=== PATIENT | male | born 1940 | race Caucasian/White ===

== ENCOUNTER → 2018-01-30 15:52 | Outpatient (CLI) | payer MEDICARE, OTHER, SELFPAY ==
--- NOTE | 2018-01-30 | DI.MRI.S_ITS ---
PROCEDURE: MR LUMBAR SPINE WO CON INDICATIONS: LUMBAR SPINE TECHNIQUE: Noncontrast sagittal T1 spin echo and T2 fast echo, sagittal STIR, axial T1 and T2 fast spin echo through the lumbar spine. In this patient, coronal T2-weighted images were also performed. COMPARISON: None. FINDINGS: Image quality: Excellent. Alignment and Curvature: Mild levoconvex scoliotic curvature is noted. Minimal retrolisthesis is seen at the L2-L3, L4-L4 and L4-L5 levels. Bone Marrow: Marrow is of normal overall signal. No acute vertebral body compression fractures. Spinal Cord: Conus medullaris terminates at the T12-L1 level. Visualized cord demonstrates normal signal and size. Paraspinous Soft Tissues: No paravertebral masses. T12-L1: Moderate to severe loss of disc height and disc signal are seen, with endplate osteophyte formation. Moderate to prominent disc bulge is seen at this level. Moderate facet joint hypertrophy is seen. There is at least moderate bilateral neural foraminal narrowing seen, left worse than right. Moderate to severe central canal narrowing is seen. L1-L2: The disc height is well-preserved. Loss of disc signal is seen at this level. Moderate generalized disc bulge is seen. Postoperative changes are seen, with a spinous process fixation device. Moderate bilateral neural foraminal narrowing is seen, left greater than right. Mild to moderate central canal narrowing is seen. L2-L3: The disc height is well-preserved. Loss of disc signal is seen at this level. Moderate to prominent disc bulge is seen, which is eccentric to the right. There is moderate left-sided and moderate to severe right-sided neural foraminal narrowing. Moderate to severe central canal narrowing is seen. L3-L4: Mild loss of disc height is seen. Loss of disc signal is seen. Moderate to prominent disc bulge is seen. Portions of the posterior elements have been removed at this level. Moderate facet joint hypertrophy is seen. Moderate to severe bilateral neural foraminal narrowing is seen, left worse than right. There is a degree of impingement seen upon the exiting nerve roots. At Mild to moderate central canal narrowing is seen. L4-L5: Moderate to severe loss of disc height and disc signal are seen. Endplate irregularity is seen with endplate osteophyte formation. Posteriorly projecting endplate osteophytes are seen, as on series 3 image 9 and on series 5 image 25. Moderate to prominent disc bulge is seen, which is eccentric to the left side. Moderate to severe bilateral neural foraminal narrowing is seen at this level. There is a degree of impingement seen upon the exiting nerve roots. There is been removal of portions of posterior elements. Moderate central canal narrowing is seen. L5-S1: There is an annular tear seen posteriorly, as on series 2 image 8. Mild to moderate disc bulge is seen. Moderate facet joint hypertrophy is seen. Moderate to severe bilateral neural foraminal narrowing is seen. There is an apparent prior left hemilaminectomy. Moderate central canal narrowing is seen. IMPRESSION: Multiple levels of degenerative change are seen, which are most prominent at the L3-L4 and L4-L5 levels. Postoperative changes can be seen. Mild levoconvex scoliotic curvature. Dictated by: Clive Vallejo M.D. on 01/30/2018 at 16:22 Approved by: Clive Vallejo M.D. on 01/30/2018 at 16:30
== END ==
PROVIDERS: Visit Provider Physical Medicine & Rehabilitation Pain Medicine
DX: M54.5 Low back pain (principal); M51.36 Other intervertebral disc degeneration, lumbar region; M51.37 Other intervertebral disc degeneration, lumbosacral region; M48.061 Spinal stenosis, lumbar region without neurogenic claudication; M48.07 Spinal stenosis, lumbosacral region; M41.9 Scoliosis, unspecified
CPT/HCPCS: 72148

== ENCOUNTER → 2018-10-14 12:23 | Outpatient (CLI) | payer MEDICARE, BC, SELFPAY ==
--- NOTE | 2018-10-14 12:30 | DI.MRI.S_ITS ---
PROCEDURE: MR LUMBAR SPINE WO CON INDICATIONS: Radiculopathy, lumbosacral region TECHNIQUE: Noncontrast sagittal T1 spin echo and T2 fast echo, sagittal STIR, axial T1 and T2 fast spin echo through the lumbar spine. In cases with scoliosis, additional coronal T2 fast spin echo may be performed. COMPARISON: [facility] [place], CR, XR LUMBAR SPINE WITH OLBIQUES PLUS FLEXION EXTENSION, 01/16/2018, 14:15. [facility], , MR LUMBAR SPINE WO CON, 01/30/2018, 16:22. FINDINGS: Image quality: Excellent. Alignment and Curvature: There is mild no scoliosis. There is otherwise normal bony alignment. Bone Marrow: Mild levocurvature. Degenerative endplate signal changes. There is posterior fusion at L1-L2. No acute vertebral body compression fractures. Spinal Cord: Conus medullaris terminates at the T12 level. Visualized cord demonstrates normal signal and size. Paraspinous Soft Tissues: No paravertebral masses. T11-T12: Severe loss of disc height and disc desiccation. There is diffuse posterior disc bulge and posterior lateral disc protrusion. Moderate bilateral facet arthropathy. The central canal is severely narrowed. Sxjkgimw-qm-ogttxy bilateral foraminal stenosis and bilateral nerve root impingement. There is mildly increasing central canal and no significant change in foramina stenosis since the last exam. T12-L1: Severe loss of disc height and disc desiccation. There is diffuse posterior disc bulge and disc osteophyte complex. Pbemepos-em-niptlv bilateral facet arthropathy. The central canal is severely narrowed. Moderate bilateral foraminal stenosis. No definitive nerve root impingement. There is mildly increasing central canal and no significant change in foramina stenosis since the last exam. L1-L2: Mild loss of disc height. Moderate disc desiccation. There is diffuse posterior disc bulge and disc osteophyte complex. Zdrxbgqy-fe-dwekff bilateral facet arthropathy. The central canal is moderately narrowed. Yyfh-au-vbrsdwxc bilateral foraminal stenosis. No definitive nerve root impingement. No significant change from the last exam. L2-L3: Mild loss of disc height. Moderate disc desiccation. There is diffuse posterior disc bulge and disc osteophyte complex. Vabsrrxr-ej-yaczja bilateral facet arthropathy and hypertrophy of ligament flavum. The central canal is moderately narrowed. Moderate bilateral foraminal stenosis. No definitive nerve root impingement. No significant change from the last exam. L3-L4: Mild loss of disc height. Moderate disc desiccation. There is diffuse posterior disc bulge and posterior lateral disc protrusion. Severe bilateral facet arthropathy. The central canal is mildly narrowed. Severe bilateral foraminal stenosis and nerve root impingement. No significant change from the last exam. L4-L5: Severe loss of disc height. Moderate disc desiccation. There is diffuse posterior disc bulge and an enlarged left paramedian disc osteophyte complex. Moderate bilateral facet arthropathy. The central canal is mildly narrowed. Severe bilateral foraminal stenosis and nerve root impingement. No significant change from the last exam. L5-S1: Preserved disc height. Moderate disc desiccation. There is diffuse posterior disc bulge and an enlarged left paramedian disc osteophyte complex. Moderate to severe bilateral facet arthropathy. The central canal is mildly narrowed. Severe bilateral foraminal stenosis and nerve root impingement. No significant change from the last exam. IMPRESSION: 1. Multilevel degenerative disc disease and facet arthropathy as described. 2. Severe central canal stenosis at T11-T12 and T12-L1, moderate central canal stenosis at L1-L2 and L2-L3, and mild central canal stenosis at other levels. 3. Multilevel foraminal stenoses as described. Dictated by: Munira Salguero M.D. on 10/16/2018 at 10:06 Transcribed by: DARRELL on 10/16/2018 at 15:30 Approved by: Munira Salguero M.D. on 10/16/2018 at 18:42
== END ==
PROVIDERS: Visit Provider Physical Medicine & Rehabilitation Pain Medicine
DX: M51.17 Intervertebral disc disorders with radiculopathy, lumbosacral region (principal); M51.16 Intervertebral disc disorders with radiculopathy, lumbar region; M51.14 Intervertebral disc disorders with radiculopathy, thoracic region; M48.07 Spinal stenosis, lumbosacral region; M48.061 Spinal stenosis, lumbar region without neurogenic claudication; M48.04 Spinal stenosis, thoracic region; M47.24 Other spondylosis with radiculopathy, thoracic region; M47.25 Other spondylosis with radiculopathy, thoracolumbar region; M47.26 Other spondylosis with radiculopathy, lumbar region; M47.27 Other spondylosis with radiculopathy, lumbosacral region; Z98.1 Arthrodesis status
CPT/HCPCS: 72148

== ENCOUNTER → 2018-10-27 14:36 | Outpatient (CLI) | payer MEDICARE, BC, SELFPAY ==
--- NOTE | 2018-10-27 14:42 | DI.MRI.S_ITS ---
PROCEDURE: MR THORACIC SPINE WO CON INDICATIONS: THORACIC RADICULOPATHY TECHNIQUE: Noncontrast sagittal T1 spine echo and T2 fast spin echo, sagittal STIR, axial T1 and T2 fast spin echo through the thoracic spine. COMPARISON: None. FINDINGS: Image quality: Excellent. Alignment and Curvature: There is normal bony alignment. Bone Marrow: Marrow is of normal overall signal. No acute vertebral body compression fractures. Spinal Cord: Visualized spinal cord is normal in size and signal. Paraspinous Soft Tissues: No paravertebral masses. Miscellaneous: On axial images, foramina appear widely patent at all scanned levels. Multilevel disc desiccation is present. Minimal protrusion is present at T5-6, minimal bulge at T6-7, T7-T8, T10-11, T11, moderate protrusion T12-L1. Small superimposed extrusion cannot be excluded T12-L1. Mild disc bulge and moderate spinal stenosis at L1-L2. Mild spinal stenosis is noted at T10-11, moderate T11-12, severe T12-L1. IMPRESSION: 1. Prominent protrusion with potential small superimposed extrusion at T12-L1 with severe spinal stenosis. 2. Multilevel disc bulges and overall mild to moderate spinal stenosis as above. The above findings were discussed with Dr. Duque's esthetician and manager medical spa Anna Marie, on 10/27/18 at 4:58 PM. The findings would be relayed to Dr. Duque. Dictated by: Ebony Pan M.D. on 10/27/2018 at 16:55 Approved by: Ebony Pan M.D. on 10/27/2018 at 17:02
== END ==
PROVIDERS: PCP Family Medicine; Visit Provider Orthopaedic Surgery Orthopaedic Surgery of the Spine
DX: M51.16 Intervertebral disc disorders with radiculopathy, lumbar region (principal); M51.15 Intervertebral disc disorders with radiculopathy, thoracolumbar region; M48.04 Spinal stenosis, thoracic region; M48.061 Spinal stenosis, lumbar region without neurogenic claudication
CPT/HCPCS: 72146

== ENCOUNTER 2018-11-01 12:24 | Inpatient (IN) | payer MEDICARE, BC, SELFPAY ==
[2018-10-30 15:08] VITALS: BMI 29.7
[2018-10-31] VITALS (16 sets, daily range): BP systolic 93–150; BP diastolic 43–89; PULSE 60–88; RESP 10–19; TEMP 36.2–37; O2SAT 91–100; BMI 28.5
--- NOTE | 2018-10-31 | DI.RAD.S_ITS ---
PROCEDURE: XR LUMBAR SPINE 1V INDICATIONS: LAMINECTOMY T-12, L1 TECHNIQUE: 1 view of the lumbar spine were acquired. COMPARISON: [facility], MR, MR LUMBAR SPINE WO CON, 10/14/2018, 12:37. FINDINGS: A lateral fluoroscopy image of the thoracolumbar junction demonstrates a needle and surgical instrument posterior to T12-L1. IMPRESSION: Fluoroscopy for surgical localization. Dictated by: Munira Salguero M.D. on 10/31/2018 at 13:46 Approved by: Munira Salguero M.D. on 10/31/2018 at 13:47
[2018-10-31] MEDS: LACTATED RINGERS 1,000 ML 42 ML IV ×2 (06:45→09:35)
[2018-10-31 07:20] LABS: Add Manual Diff / Slide Review NO; Basophils Absolute Auto 0 /uL (0-100); Basophils Percent Auto 0.6 % (0-2); Eosinophils Absolute Auto 200 /uL (0-450); Eosinophils Percent Auto 3.1 % (2-4); Hematocrit 38.5 % (41-53); Lymphocytes Absolute Auto 800 /uL (1100-4500); Lymphocytes Percent Auto 14.5 % (25-40); Mean Corpuscular HGB Conc 33.7 % (30-36); Mean Corpuscular Hemoglobin 32.3 PG (26-34); Monocytes Absolute Auto 600 /uL (0-900); Monocytes Percent Auto 11.1 % (3-14); Neutrophils Absolute Auto 4000 /uL (1500-7000); Neutrophils Percent Auto 70.7 % (50-75); Platelet Count 236 X10^3/uL (150-400); Red Blood Cell Count 4.01 X10^6/uL (4.5-5.9); Red Cell Distribution Width 14.9 % (11.6-14.8); White Blood Cell Count 5.7 X10^3/uL (4.5-11.0)
[2018-10-31 07:30] LABS: Blood Urea Nitrogen 25 mg/dL (9-20); Calcium 9.3 mg/dL (8.4-10.2); Carbon Dioxide 24 mmol/L (22-32); Chloride 107 mmol/L (98-107); Estimated Glomerular Filt Rate > 60.0 mL/min (>60); Glucose 138 mg/dL (80-110); HEMOLYSIS < 15 (0-50); Potassium 4.6 mmol/L (3.4-5.1); Sodium 140 mmol/L (137-145)
[2018-10-31] MEDS: CEFAZOLIN 2 GM/100 ML FROZ.PIGGY IV ×2 (07:54→18:13)
--- NOTE | 2018-10-31 07:54 | PM.PREOP ---
Pre-operative Note Interval Note History & Physical reviewed/Exam performed by Physician: Yes Changes to H&P: No
--- NOTE | 2018-10-31 08:39 | SUR.OPER ---
Prone on spine table, head in foam head support, padded chest and pelvic supports, gel pad at knees, lower legs supported by pillows; nipples, genitalia and toes free of pressure, arms secured on foam padded arm boards at <90 degrees abduction. Tape over blanket at thigh secured to table.
[2018-10-31] MEDS: BUPIVACAINE 0.25% W/ EPI 30 ML VIAL INJ (08:47)
--- NOTE | 2018-10-31 09:40 | PM.OP.1 ---
Operative Date/Time/Diagnoses Date of procedure: 10/31/18 Time of procedure: 08:03 Pre-op diagnosis: 1. T11-T12, T12-L1 spinal stenosis 2. Conus compression and bowel and bladder incontinence Post-op diagnosis: same Procedure & Clinicians Procedure: 1. T11-T12, T12-L1 laminectomy with bilateral partial facetecomies 2. Utilization of microsurgical technique and operating microscope Same procedure as scheduled: Yes Indications: Patient has been having chronic back pain with history of multiple lumbar surgeries with neurologic deficit chronicially including bilateral drop foot that requires AFO. He has been having worsening and relatively new onset bladder and bowel incontinence over the last 4 weeks. Patient has been having difficulty getting to the bathroom due to both the worsening contents as well as difficulty walking using his legs due to weakness bilaterally. Patient has been having difficulty performing activity of daily living. After discussing risks benefits of treatment options, patient elected proceed with surgery urgently. Surgeon: Beatris Duque Tube Molder Fiberglass: Gretta Miles Click Yes if Unassisted: No Anesthesia Type: General Operative Notes Closure Type: primary Specimen(s): none sent Estimated Blood Loss (mL): 50 Blood products transfused: none Procedure in detail: Patient was seen in the preoperative area. Risks and benefits of the surgery was discussed with the patient. Informed consent was obtained from the patient and placed in the chart. Surgical site was marked. Patient was taken to the operative room. General anesthesia was administered. Prophylactic antibiotic was given to the patient less than 30 min before the incision was made. Patient was placed into a prone position on the Jeff table. Patient's back was then prepped and draped in the sterile fashion. Time-out was performed at this time. Using AP and lateral C-arm imaging the interval between T11-T12 T12-L1 was identified and marked on patient's back. A 3 inch incision at midline was made. The fascia was incised in line with skin incision. Dissection was made using the Whatley and Bovie down to the level of the T11 and T12 lamina. C-arm imaging was used to confirm the level. Self retaining retractor was placed inside the wound. Using microsurgical technique and operating microscope, a T11, T12 laminectomy was performed using a Kerrison rongeur. Liagamentum flavum was resected at the site of the laminotomy. Either side of the dura was exposed. Bilateral partial facetcomies was performed to further decompress the lateral recess at T11-T12, T12-L1 levels. Patient was found have severe cord compression at T11-T12 due to significantly hypertrophied ligamentum flavum as well as enlarged facet joints. Full decompression was achieved by removing the ligamentum flavum and undercutting the bilateral facets for decompression of the cord. The spinal cord was inspected at the entirety of the exposure so and was fully decompressed at the end of the procedure. After the laminectomy was completed, the area medial lateral superior and inferior to the area of the laminectomy was inspected and explored using a micro curette. No other impinging structure was identified. The wound was then irrigated with sterile normal saline. The deep fascia was closed with 1-0 Vicryl. The subcutaneous tissue was closed with 2-0 Vicryl. The skin was closed with jorgito. Patient tolerated the procedure well. There were no complications. Patient was transferred recovery room in stable condition. Complications: none Condition: stable Disposition: PACU Plan for aftercare: Admit for overnight care and physical therapy
[2018-10-31] MEDS: SODIUM CHLORIDE 0.9% 1,000 ML 100 ML IV (13:00)
--- NOTE | 2018-10-31 15:10 | PT.IIE ---
Current Diagnoses Unspecified cord compression (10/31/18) Spinal stenosis, thoracic region (10/31/18) Unspecified urinary incontinence (10/31/18) Surgery Performed Operation Date: 10/31/18 07:45 Actual Procedures p T11-T12, T12-L1 laminectomy - Beatris Duque MD Surgical History (Last Updated 10/30/18 @ 15:29 by Ruthann Garcia RN) History of lumbar surgery (Acute) Medical History (Last Updated 10/30/18 @ 15:29 by Ruthann Garcia RN) Bilateral foot-drop (Acute) Depression (Acute) Fecal incontinence (Acute) HLD (hyperlipidemia) (Acute) HTN (hypertension) (Acute) Neurogenic incontinence (Acute) Numbness and tingling (Acute) Spinal stenosis (Acute) Physical Therapy Inpatient Evaluation/Re-Eval M1 PT/OT-IP Prior Functional Status Start: 10/31/18 16:43 Freq: NEEDED Status: Active Protocol: Document 10/31/18 15:10 AB (Rec: 10/31/18 17:13 AB [id number]) Medical Review Prior Functional Status Medical History Reviewed Yes Communication pt able to make needs known Mobility and Gait pt stated that he is modified independent with all mobilities and ambulation using FWW indoors but occasionally furniture cruises ; uses an electric scooter for outdoor mobility and occasionally a 4WW Social History Household Members spouse Living Arrangements House Number of Floors (Floors) 3 or More Floors Number of Stairs To Enter/Railing? pt stays on main level of the house; has 1 step to enter; has 2 steps without rails to the sunken living room Home Environment Standard Height Toilet Walk in Shower Home Equipment Front Wheel Walker Four Wheel Walker Power Wheelchair/Scooter Shower Seat without Backrest Additional Social History Comment pt has walking sticks has AFOs but pt stated that he only wears them when he goes outdoors. M2 PT-IP Current Condition Start: 10/31/18 16:43 Freq: NEEDED Status: Active Protocol: Document 10/31/18 15:10 AB (Rec: 10/31/18 17:13 AB [id number]) Physical Therapy Current Condition Current Condition Evaluation Date 10/31/18 Treatment Diagnosis s/p T11-L1 lami/facetectomies; difficulty in walking Onset Date 10/31/18 Precautions Lumbar Precautions Log Roll No Twisting Limit Bending Lifting Restriction of 10 lbs Gait Belt above Incisional Area M3 PT-IP Subjective Start: 10/31/18 16:43 Freq: NEEDED Status: Active Protocol: Document 10/31/18 15:10 AB (Rec: 10/31/18 17:13 AB [id number]) Subjective Physical Therapy Visit Type Type Initial Evaluation Visit Start Time 15:10 Visit Stop Time 16:16 Total Visit Minutes 66 Number of PILOT PLANT TECHNICIAN Visits 0 Physical Therapy Visit Comments Patient Comments pt agreeable to do PT Therapy Pain Assessment Pain When Pain Assessed At Rest Pain Present Pain Present Pain Reported Location Back Intensity 6 Scale Used Numeric (1 - 10) Pain Management Techniques Re-positioning Timing of Activity with Medications M4 PT-IP Mobility and Gait Start: 10/31/18 16:43 Freq: NEEDED Status: Active Protocol: Document 10/31/18 15:10 AB (Rec: 10/31/18 17:13 AB [id number]) PT-Bed Mobility Assessment Rolling Type of Rolling Log Rolling Level of Assist Maximal Assistance 1 Person Assistance Supine to Sit Supine to Sit Maximum Assistance 1 Person Assistance Sit to Supine Sit to Supine Maximum Assistance 1 Person Assistance Scooting Scooting to Edge of Bed Minimal Assistance PT-Transfer Assessment Sit to and From Stand Sit to and from Stand Maximum Assistance 1 Person Assistance Use of Upper Extremities Equipment Transfer Assistive Device Gait Belt Front Wheeled Walker Orthotic/Prosthetic Devices or Brace: No Gait Assessment Gait Gait Assistance Required: Maximum Assistance 1 Person Assist Distance (Feet) 10 Able to Maintain Weight Bearing Status Yes During Gait Assistive Devices Assistive Device Gait Belt Front Wheeled Walker Gait Deviations General Gait Pattern Antalgic Decreased Stride Length Flexed Trunk Wide Based Gait Factors Limiting Gait Function Factors Limiting Gait Function Decreased Activity Tolerance Decreased Sensation Decreased Strength Limited Range of Motion Pain Poor Balance Poor Safety Awareness Comments Gait Comments pt completed sit to stand max A and cues. ambulated in room using FWW ~ 10 ft max A and max cues. presents with increase forward lean and increase L knee flexion. pt has bilateral foot drop and cued to elevated BLE up off the floor. pt tends to have FWW too far forward. PT-Balance Assessment Sitting Balance and Reactions Static Sitting Balance Ability Good Dynamic Sitting Balance Ability Good Standing Balance and Reactions Static Standing Balance Ability Poor Dynamic Standing Balance Ability Poor Device Used FWW M5 PT-IP Objective Assessments Start: 10/31/18 16:43 Freq: NEEDED Status: Active Protocol: Document 10/31/18 15:10 AB (Rec: 10/31/18 17:13 AB [id number]) Orientation Orientation/Cognition Level of Alertness Alert Orientation Name Place Situation Language Function Ability Hard of Hearing Safety Awareness Decreased Safety Awareness Gross Range of Motion Lower Extremity ROM Assessment Bilaterally Impaired Impairments bilateral tightness towards ankle DF Strength Lower Extremity Strength Assessment Bilaterally Impaired Comments Strength Comments RLE 3+/5 LLE 3+/5 except bilateral ankle DF: 0/5 bilateral ankle PF 1/5 Sensation Assessment Sensation Gross Sensation Right LE Impaired Left LE Impaired Light Touch Impaired Proprioception (Position) Impaired Sensation Description Numbness Comments Sensation Comments pt has more sensation on LLE compared to RLE Other Assessments Other Other Assessments BLE muscle atrophy with L>R especially with calf muscle M6 PT-IP Treatment Start: 10/31/18 16:43 Freq: NEEDED Status: Active Protocol: Document 10/31/18 15:10 AB (Rec: 10/31/18 17:13 AB [id number]) Physical Therapy Treatment Education Education Provided Precautions Weight Bearing Status Post-Op Packet Safety Other Treatments Other Treatment Performed pt educated on safety, current functional mobility and d/c plans. educated pt on importance of using B AFO for stability and safety and to wear them even when inside the house. pt understood. M7 PT-IP Assessment and Plan Start: 10/31/18 16:43 Freq: NEEDED Status: Active Protocol: Document 10/31/18 15:10 AB (Rec: 10/31/18 17:13 AB [id number]) PT Summary Assessment and Plan Potential Rehabilitation Potential Fair Status of Condition at Evaluation Evolving Summary Impairments Pain ROM Strength Balance Coordination Sensation Bed Mobility Transfers Gait Activity Tolerance Assessment Summary pt requiring max A and max cues during mobility. has h/o multiple back surgeries and BLE weakness affecting mobility. pt also has h/o falls. d/c plan depending on progress and if spouse will be able to assist pt safely. caregiver training is set up tomorrow 11/01/18 at 10 am and also informed pt to call his to bring his AFOs here in the hospital. will assess progress but pt may require SNF rehab. Goals Bed Mobility Goal Standby Assistance Transfer Goal Standby Assistance Front Wheeled Walker Gait Goal Standby Assistance Front Wheel Walker Gait Distance 100 Other Goals up/down 1 step using FWW; up/ down 2 steps using FWW/SPC SBA Days to Meet Goals 5 Frequency of Treatment Frequency Of Treatment Twice a Day Treatment Plan Physical Therapy Treatment Plan Bed Mobility Training Transfer Training Gait Training Therapeutic Exercise Balance Retraining Post Op Education Discharge Planning Hot or Cold Pack Neuromuscular Re-ed Coordination Retraining Manual Therapy Recommendations To Nursing Amount of Assist Needed 1 Person Assist Discharge Recommendations PT Discharge Recommendations Home with 24/7 Assist Home Health SNF Rehab Other Discharge Recommendations depending on progress: SNF vs home with 24/7 and homehealth PT
--- NOTE | 2018-10-31 15:54 | PC.NURSE ---
Ortho: SI've fallen bunches of times. Pt needing to void. Bladder scanned for almost 500mls, doesn't feel need to void - however said he would try. Pt requires assist of 2 to stand for safety and legs are weak. he was able to void 500mls of dk yellow uop. Then assisted back to bed. Pt reports severe peripheral neuropathy and he can't feel his feet. Ppp, feet =/cool. Brisk cap refill to toes. Pain radiates from his back into his legs. Dressing to back is c/d/i. No need for pain meds yet. BP axs low as 93 systolic, but when he got up bp climbed to the mid 120's systolic. Denies concerns at this time.
[2018-10-31] MEDS: HYDROMORPHONE 1 MG INJ 0.5 MG IV ×2 (16:37→22:10)
[2018-10-31] MEDS: OXYCODONE IR 5 MG TABLET PO ×3 (16:37→23:48)
--- NOTE | 2018-10-31 23:57 | PC.NURSE ---
Addendum entered by Shoshana Lara R.N. 11/01/18 00:08: Pt and this junior technical writer discussed pt pain medications, and many of pts medications are on wrong frequency, some are not even on the MAR. Called Dr Duque and am now redoing the MAR. Pt given metoprolol ER 50mg PO, ASA 81mg, Atorvastatin 40mg, and Sertraline 50mg tonight. Pt glimepiride has been ordered as well as achs glucose checks. All meds will be timed correctly by pharmacy. Original Note: shift summary- Pt c/o pain 11/25, @ 1630, medicated with oxycodone 5mg PO and dilaudid 0.5mg IV, effective to 05/28. Educated on pain management and agreed to take oxycodone 5mg Q-3hr. Pt did @ 2210 request dilaudid 0.5mg IV after oxycodone 5mg given @ 1999. Back drsg CDI and repositioning pt PRN. Pt able to stand and void using urinal with 1PA FWW gait belt. RFA NS @ 100.
[2018-11-01] VITALS (10 sets, daily range): BP systolic 99–150; BP diastolic 52–87; PULSE 69–88; RESP 16–22; TEMP 36.6–37.5; O2SAT 92–98
[2018-11-01] MEDS: CEFAZOLIN 2 GM/100 ML FROZ.PIGGY IV (01:05)
[2018-11-01] MEDS: SODIUM CHLORIDE 0.9% 1,000 ML 100 ML IV (01:07)
[2018-11-01] MEDS: ATORVASTATIN 20 MG TABLET 40 MG PO ×2 (01:19→21:16)
[2018-11-01] MEDS: SERTRALINE 50 MG TABLET PO ×2 (01:19→21:16)
[2018-11-01] MEDS: ASPIRIN EC 81 MG TABLET PO ×2 (01:19→17:32)
[2018-11-01] MEDS: METOPROLOL ER 50 MG TABLET PO ×2 (01:37→17:32)
[2018-11-01] MEDS: HYDROMORPHONE 0.5 MG INJ IV ×2 (01:57→10:05)
[2018-11-01] MEDS: OXYCODONE IR 5 MG TABLET PO ×4 (04:14→17:56)
--- NOTE | 2018-11-01 04:33 | PC.NURSE ---
Pt VSS, lung sounds clear bilaterally. Pt is in pain 5-6/10 controlled w/ oxycodone 5mg and breakthrough dilaudid 0.5mg. Pt has no nausea, is urinating at the bedside w/ urinal. BS is 154. Pt has braces for his legs at home that his will bring for Physical Therapy today. Pt was educated about the use of IS for post-op complications. Pt is wearing SCD's. Pt stated that he had fallen two times a month ago coming out of the shower. Fall Risk precautions were implemented.
[2018-11-01] MEDS: LISINOPRIL 5 MG TABLET 15 MG PO (08:00)
[2018-11-01] MEDS: ACETAMINOPHEN 325 MG TABLET 650 MG PO ×2 (08:00→19:28)
[2018-11-01] MEDS: TAMSULOSIN 0.4 MG CAPSULE PO (08:02)
[2018-11-01] MEDS: PANTOPRAZOLE 20 MG TABLET PO (08:02)
--- NOTE | 2018-11-01 08:07 | PM.PNPO.1 ---
Subjective Date Patient Seen: 11/01/18 Time Patient Seen: 08:08 Interval history: POD 1 s/p T11-L1 Laminectomies with Dr. Duque. His pain has been well controlled. He has been standing to urinate. He has not been up with physical therapy yet. His is bringing his leg braces today. He has resumed his aspirin for VTE prophylaxis. Exam Vital Signs (past 8 hours): - 11/01/18 01:37 11/01/18 02:13 11/01/18 03:41 Temperature 97.8 F Pulse Rate 88 75 81 Respiratory Rate 17 Blood Pressure 150/87 H 131/67 139/76 Pulse Oximetry 98 Oxygen Delivery Method Room Air Oxygen Flow Rate 0 Narrative Exam Narrative: Patient is sitting up in bed in no acute distress. He is alert and oriented x3. Calves are soft, compressible, nontender bilaterally. Sensation intact without her bilateral lower extremities. Pulses are symmetrical. SCDs on and operating. Objective Labs Result Diagrams: 10/31/18 07:10 10/31/18 07:10 Assessment & Plan Post-op Postoperative Procedures Operation Date: 10/31/18 07:45 Actual Procedures Side Surgeon p T11-T12, T12-L1 laminectomy Beatris Duque MD Patient doing well postoperatively. He will get up and mobilize with physical therapy today. Continue current pain management. If patient is doing well, he may discharge home tonight, or possibly tomorrow morning.
[2018-11-01] MEDS: GLIMEPIRIDE 2 MG TABLET PO (08:09)
--- NOTE | 2018-11-01 11:09 | PT.IPTN ---
Current Diagnoses Unspecified cord compression (10/31/18) Spinal stenosis, thoracic region (10/31/18) Unspecified urinary incontinence (10/31/18) Surgery Performed Operation Date: 10/31/18 07:45 Actual Procedures p T11-T12, T12-L1 laminectomy - Beatris Duque MD Physical Therapy Treatment Note M2 PT-IP Current Condition Start: 10/31/18 16:43 Freq: NEEDED Status: Active Protocol: Document 10/31/18 15:10 AB (Rec: 10/31/18 17:13 AB [id number]) Physical Therapy Current Condition Current Condition Evaluation Date 10/31/18 Treatment Diagnosis s/p T11-L1 lami/facetectomies; difficulty in walking Onset Date 10/31/18 Precautions Lumbar Precautions Log Roll No Twisting Limit Bending Lifting Restriction of 10 lbs Gait Belt above Incisional Area M3 PT-IP Subjective Start: 10/31/18 16:43 Freq: NEEDED Status: Active Protocol: Document 11/01/18 11:09 AB (Rec: 11/01/18 13:36 AB [id number]) Subjective Physical Therapy Visit Type Type Treatment Note Visit Start Time 11:09 Visit Stop Time 11:45 Total Visit Minutes 36 Number of STEEL RIGGER Visits 0 Physical Therapy Visit Comments Patient Comments pt agreeable to do PT Therapy Pain Assessment Pain When Pain Assessed At Rest Pain Present Pain Present Pain Reported Location Back Intensity 3 Scale Used Numeric (1 - 10) Pain Management Techniques Apply Cold Re-positioning Timing of Activity with Medications M4 PT-IP Mobility and Gait Start: 10/31/18 16:43 Freq: NEEDED Status: Active Protocol: Document 11/01/18 11:09 AB (Rec: 11/01/18 13:36 AB [id number]) PT-Bed Mobility Assessment Rolling Type of Rolling Log Rolling Level of Assist Maximal Assistance Supine to Sit Supine to Sit Maximum Assistance 1 Person Assistance PT-Transfer Assessment Sit to and From Stand Sit to and from Stand Moderate Assistance 1 Person Assistance Use of Upper Extremities Equipment Transfer Assistive Device Gait Belt Front Wheeled Walker Orthotic/Prosthetic Devices or Brace: Yes Transfers Transfer Destination Chair Transfer Technique pt ambulated using FWW Transfer Ability Level of Assist Moderate Assistance Maximum Assistance 1 Person Assistance Use of Upper Extremities Comments Mobility Comments Assisted pt with putting bilateral AFOs on. educated spouse on how to don AFOs. educated pt on importance of using AFOs even when ambulating indoors. pt requires cues for posture and to activate L quads during sit to stand and ambulation.. Gait Assessment Gait Gait Assistance Required: Moderate Assistance Maximum Assistance 1 Person Assist Distance (Feet) 10 Able to Maintain Weight Bearing Status Yes During Gait Assistive Devices Assistive Device Gait Belt Front Wheeled Walker Orthotic/Prosthetic Devices or Brace: Yes Gait Deviations General Gait Pattern Antalgic Decreased Stride Length Decreased Feet Clearance Flexed Trunk Step-to Gait Factors Limiting Gait Function Factors Limiting Gait Function Decreased Activity Tolerance Decreased Sensation Decreased Strength Difficulty Following Directions Limited Range of Motion Pain Poor Balance Poor Safety Awareness Comments Gait Comments continues to present with unsteady gait with increase L knee flexion during ambulation and requires cues to activate quad muscles. spouse stated that pt has increase knee flexion even before surgery. M5 PT-IP Objective Assessments Start: 10/31/18 16:43 Freq: NEEDED Status: Active Protocol: Document 10/31/18 15:10 AB (Rec: 10/31/18 17:13 AB [id number]) Orientation Orientation/Cognition Level of Alertness Alert Orientation Name Place Situation Language Function Ability Hard of Hearing Safety Awareness Decreased Safety Awareness Gross Range of Motion Lower Extremity ROM Assessment Bilaterally Impaired Impairments bilateral tightness towards ankle DF Strength Lower Extremity Strength Assessment Bilaterally Impaired Comments Strength Comments RLE 3+/5 LLE 3+/5 except bilateral ankle DF: 0/5 bilateral ankle PF 1/5 Sensation Assessment Sensation Gross Sensation Right LE Impaired Left LE Impaired Light Touch Impaired Proprioception (Position) Impaired Sensation Description Numbness Comments Sensation Comments pt has more sensation on LLE compared to RLE Other Assessments Other Other Assessments BLE muscle atrophy with L>R especially with calf muscle M6 PT-IP Treatment Start: 10/31/18 16:43 Freq: NEEDED Status: Active Protocol: Document 11/01/18 11:09 AB (Rec: 11/01/18 13:36 AB [id number]) Physical Therapy Treatment Education Education Provided Safety M7 PT-IP Assessment and Plan Start: 10/31/18 16:43 Freq: NEEDED Status: Active Protocol: Document 11/01/18 11:09 AB (Rec: 11/01/18 13:36 AB [id number]) PT Summary Assessment and Plan Potential Rehabilitation Potential Fair Summary Impairments Pain ROM Strength Balance Coordination Sensation Tone Cognition Bed Mobility Transfers Gait Activity Tolerance Progress Towards Goals Slow Progress due to Pain Slow Progress due to Medical Issues Slow Progress due to Activity Tolerance Slow Progress - Other Assessment Summary pt requiring max A and max cues with mobility. caregiver training was initiated but further training is required. pt had other co-morbidities affecting mobility and progress and currently is not safe to go home. will continue to assess progress but at this time, pt will require SNF rehab. Goals Bed Mobility Goal Standby Assistance Transfer Goal Standby Assistance Front Wheeled Walker Gait Goal Standby Assistance Front Wheel Walker Gait Distance 100 Other Goals up/down 1 step using FWW; up/ down 2 steps using FWW/SPC SBA Days to Meet Goals 5 Frequency of Treatment Frequency Of Treatment Twice a Day Treatment Plan Physical Therapy Treatment Plan Bed Mobility Training Transfer Training Gait Training Therapeutic Exercise Balance Retraining Post Op Education Discharge Planning Hot or Cold Pack Neuromuscular Re-ed Coordination Retraining Manual Therapy Recommendations To Nursing Amount of Assist Needed 1 Person Assist Discharge Recommendations PT Discharge Recommendations SNF Rehab
--- NOTE | 2018-11-01 11:22 | CM.DANOTE ---
DCP/Assessment: Reviewed chart. Patient is a 78yr old male admitted to [facility] for Laminectomy performed on 10-31-[address] Duque. PCP is Dr. Whalen. Primary payor is 1)Medicare 2)[facility] Out of [facility]. Met with patient and spouse/Gisselle at bedside explained CM/SW role. Patient resting comfortably in bed, alert and oriented. Patient reports that he uses FWW at baseline. Patient and spouse reside in 3 level residence. Patient has 2 steps to enter residence. Spouse reports that patient can stay on main level during recovery if needed. It is anticipated that patient will work with therapy today and discharge home tomorrow. Patient would benefit from stair training and caregiver training prior to d/c. Left vm with therapy via [employer]. P: Anticipate home when medically stable. CM team to follow closely. DUSTIN Crain Discharge Planning/Care Management Advanced directive, confirm from FAMILY Start: 10/31/18 13:02 Freq: Q24H Status: Active Protocol: Document 10/31/18 13:03 CEW (Rec: 10/31/18 13:03 CEW [id number]) Advance Directive, confirm on record Time 13:03 Person contacted spouse Copy received No CM Discharge Assessment Start: 11/01/18 11:10 Freq: Status: Active Protocol: Document 11/01/18 11:10 KJS (Rec: 11/01/18 11:22 KJS [id number]) Discharge Planning Assessment Assigned Corporate Secretary DUSTIN Crain Contact Information Gisselle Mayen (spouse) Advance Directives? Yes Advance Directives on File No History Provided By Patient Significant Other Prior Living Arrangements House Household Members spouse Type of transporation used prior to Drives own vehicle admit Independent with ADL's Yes Is patient alert and oriented? Yes Caregiver for Another No DME Already Rented / Owned FWW / Walker Barriers to Discharge No Discharge Plan Home Transportation Arrangement Spouse to provide transportation home. Whiteboard Updated in Patient Room with Yes name and ext. # of Corporate Secretary Review Status In Process Next Review Type Continued Stay Review Pre-Anesthesia Assessment Start: 10/30/18 15:08 Freq: Status: Active Protocol: Document 10/30/18 15:08 CAB (Rec: 10/30/18 15:30 CAB [id number]) Pre-Anesthesia Assessment Patient Information Reviewed Via Chart Review Primary Care Provider Zachary Whalen Seen Specialist in Last 12 Months Yes Specialist Seen Orthopedist Primary Language Kittitian Cloth Hand Required No Height 182.88 cm Weight 99.337 kg Body Mass Index (BMI) 29.7 Hx Anesthesia Reactions Unknown Pain Present Pain Reported Musculoskeletal Symptoms Abnormal Gait Back Pain Difficulty Walking Muscle Weakness Numbness Tingling Patient is completely paralyzed or No completely immobile Prosthesis or Orthotic Device Cane Mental Status Oriented to own ability Is patient on oxygen? No Currently Taking a Beta Ronald Yes: Metoprolol Bladder Pattern Incontinent Urinary Catheter Present No Hx Urinary Self Catheterization No Diabetes No
--- NOTE | 2018-11-01 14:16 | PT.IPTN ---
Current Diagnoses Unspecified cord compression (11/01/18) Spinal stenosis, thoracic region (11/01/18) Unspecified urinary incontinence (11/01/18) Surgery Performed Operation Date: 10/31/18 07:45 Actual Procedures p T11-T12, T12-L1 laminectomy - Beatris Duque MD Physical Therapy Treatment Note M2 PT-IP Current Condition Start: 10/31/18 16:43 Freq: NEEDED Status: Active Protocol: Document 10/31/18 15:10 AB (Rec: 10/31/18 17:13 AB [id number]) Physical Therapy Current Condition Current Condition Evaluation Date 10/31/18 Treatment Diagnosis s/p T11-L1 lami/facetectomies; difficulty in walking Onset Date 10/31/18 Precautions Lumbar Precautions Log Roll No Twisting Limit Bending Lifting Restriction of 10 lbs Gait Belt above Incisional Area M3 PT-IP Subjective Start: 10/31/18 16:43 Freq: NEEDED Status: Active Protocol: Document 11/01/18 14:16 AB (Rec: 11/01/18 16:06 AB [id number]) Subjective Physical Therapy Visit Type Type Treatment Note Visit Start Time 14:16 Visit Stop Time 15:16 Total Visit Minutes 60 Number of PET CAREGIVER Visits 0 Physical Therapy Visit Comments Patient Comments pt agreeable to do PT Therapy Pain Assessment Pain When Pain Assessed At Rest Pain Present Pain Present Pain Reported Location Back Intensity 3 Scale Used Numeric (1 - 10) Pain Management Techniques Re-positioning Timing of Activity with Medications M4 PT-IP Mobility and Gait Start: 10/31/18 16:43 Freq: NEEDED Status: Active Protocol: Document 11/01/18 14:16 AB (Rec: 11/01/18 16:06 AB [id number]) PT-Bed Mobility Assessment Rolling Type of Rolling Log Rolling Level of Assist Moderate Assistance Supine to Sit Supine to Sit Maximum Assistance 1 Person Assistance Sit to Supine Sit to Supine Maximum Assistance 1 Person Assistance PT-Transfer Assessment Sit to and From Stand Sit to and from Stand Moderate Assistance Maximum Assistance 1 Person Assistance Use of Upper Extremities Equipment Transfer Assistive Device Gait Belt Front Wheeled Walker Transfers Transfer Destination Chair Transfer Technique pt ambulated to the chair Transfer Ability Level of Assist Moderate Assistance 1 Person Assistance Use of Upper Extremities Comments Mobility Comments caregiver training conducted. pt completed bed moblity log roll supine <>sit x 4 reps. spouse required cues and instructions on how to assist pt but towards the end was able to assist pt with less cues. educated spouse on how to put on and use safety belt. spouse was able to don safety belt on. pt completed sit <>stand x 5 reps. educated spouse on how to assist pt. required cues on how to assist and instruct pt. pt educated on safety and technniques for ambulating in room. pt completed ambulation in room with spouse assisting requiring mod A and cues. pt requires constant cues for upright posture and activating L quads. pt completed up/down step stool using FWW mod A x 2 and max cues. pt requested to go back to bed afterwards. spouse assisted with ambulation max A using fWW. pt with increase unsteadiness and stated that he is tired. Gait Assessment Gait Gait Assistance Required: Moderate Assistance Maximum Assistance Distance (Feet) 12 Able to Maintain Weight Bearing Status Yes During Gait Assistive Devices Assistive Device Gait Belt Front Wheeled Walker Orthotic/Prosthetic Devices or Brace: Yes Gait Deviations General Gait Pattern Antalgic Decreased Stride Length Decreased Feet Clearance Flexed Trunk Factors Limiting Gait Function Factors Limiting Gait Function Decreased Activity Tolerance Decreased Sensation Decreased Strength Limited Range of Motion Pain Poor Balance Poor Safety Awareness M5 PT-IP Objective Assessments Start: 10/31/18 16:43 Freq: NEEDED Status: Active Protocol: Document 10/31/18 15:10 AB (Rec: 10/31/18 17:13 AB [id number]) Orientation Orientation/Cognition Level of Alertness Alert Orientation Name Place Situation Language Function Ability Hard of Hearing Safety Awareness Decreased Safety Awareness Gross Range of Motion Lower Extremity ROM Assessment Bilaterally Impaired Impairments bilateral tightness towards ankle DF Strength Lower Extremity Strength Assessment Bilaterally Impaired Comments Strength Comments RLE 3+/5 LLE 3+/5 except bilateral ankle DF: 0/5 bilateral ankle PF 1/5 Sensation Assessment Sensation Gross Sensation Right LE Impaired Left LE Impaired Light Touch Impaired Proprioception (Position) Impaired Sensation Description Numbness Comments Sensation Comments pt has more sensation on LLE compared to RLE Other Assessments Other Other Assessments BLE muscle atrophy with L>R especially with calf muscle M6 PT-IP Treatment Start: 10/31/18 16:43 Freq: NEEDED Status: Active Protocol: Document 11/01/18 14:16 AB (Rec: 11/01/18 16:06 AB [id number]) Physical Therapy Treatment Education Education Provided Precautions Weight Bearing Status Safety M7 PT-IP Assessment and Plan Start: 10/31/18 16:43 Freq: NEEDED Status: Active Protocol: Document 11/01/18 14:16 AB (Rec: 11/01/18 16:06 AB [id number]) PT Summary Assessment and Plan Potential Rehabilitation Potential Fair Summary Impairments Pain ROM Strength Balance Coordination Sensation Tone Cognition Bed Mobility Transfers Gait Activity Tolerance Progress Towards Goals Slow Progress due to Pain Slow Progress due to Activity Tolerance Assessment Summary caregiver training conducted. spouse assisted pt with mobility but requires cues on how to assist and how to instruct pt. further caregiver training is needed. spouse stated that her daughter will be coming in tomorrow at ~ 230 pm and will also conduct caregiver training with pt's daughter. will continue to assess. at this time, pt continues to require SNF rehab. Goals Bed Mobility Goal Standby Assistance Transfer Goal Standby Assistance Front Wheeled Walker Gait Goal Standby Assistance Front Wheel Walker Gait Distance 100 Other Goals up/down 1 step using FWW; up/ down 2 steps using FWW/SPC SBA Days to Meet Goals 5 Frequency of Treatment Frequency Of Treatment Twice a Day Treatment Plan Physical Therapy Treatment Plan Bed Mobility Training Transfer Training Gait Training Therapeutic Exercise Balance Retraining Post Op Education Discharge Planning Hot or Cold Pack Neuromuscular Re-ed Coordination Retraining Manual Therapy Recommendations To Nursing Amount of Assist Needed 1 Person Assist Discharge Recommendations PT Discharge Recommendations SNF Rehab
--- NOTE | 2018-11-01 15:35 | OT.IP.EVAL ---
Current Diagnoses Unspecified cord compression (11/01/18) Spinal stenosis, thoracic region (11/01/18) Unspecified urinary incontinence (11/01/18) Surgery Performed Operation Date: 10/31/18 07:45 Actual Procedures p T11-T12, T12-L1 laminectomy - Beatris Duque MD Past Medical History (Last Updated 10/30/18 @ 15:29 by Ruthann Garcia, RN) Bilateral foot-drop (Acute) Depression (Acute) Fecal incontinence (Acute) HLD (hyperlipidemia) (Acute) HTN (hypertension) (Acute) Neurogenic incontinence (Acute) Numbness and tingling (Acute) Spinal stenosis (Acute) Surgical History (Last Updated 10/30/18 @ 15:29 by Ruthann Garcia RN) History of lumbar surgery (Acute) Occupational Therapy Inpatient Evaluation/Re-Eval M1 PT/OT-IP Prior Functional Status Start: 11/01/18 14:37 Freq: NEEDED Status: Active Protocol: Document 11/01/18 14:45 [facility] (Rec: 11/01/18 15:34 [facility] [id number]) Medical Review Prior Functional Status Medical History Reviewed Yes Communication pt able to make needs known Mobility and Gait pt stated that he is modified independent with all mobilities and ambulation using FWW indoors but occasionally furniture cruises ; uses an electric scooter for outdoor mobility and occasionally a 4WW Activities of Daily Living and IADL's Pt states able to do all ADl's and IADL with increased time. Social History Household Members spouse Living Arrangements House Number of Floors (Floors) 3 or More Floors Number of Stairs To Enter/Railing? pt stays on main level of the house; has 2 steps to enter; has 2 steps without rails to the sunken living room Home Environment Standard Height Toilet Walk in Shower Home Equipment Front Wheel Walker Four Wheel Walker Power Wheelchair/Scooter Shower Seat without Backrest Additional Social History Comment pt has walking sticks has AFOs but pt stated that he only wears them when he goes outdoors. Pt states has been having more trouble to stand lately. M2 OT-IP Current Condition Start: 11/01/18 14:37 Freq: Status: Active Protocol: Document 11/01/18 14:45 [facility] (Rec: 11/01/18 15:34 [facility] [id number]) Occupational Therapy Current Condition Current Condition Evaluation Date 11/01/18 Treatment Diagnosis T11-T12 Laminectomy, weakness Diagnosis Onset Date 11/01/18 Post Operative Precautions Lumbar Precautions Log Roll No Twisting Limit Bending Lifting Restriction of 10 lbs Weight Bearing Status Weight Bearing Status Weight Bear as Tolerated M3 OT- IP Subjective and Pain Start: 11/01/18 14:37 Freq: Status: Active Protocol: Document 11/01/18 14:45 [facility] (Rec: 11/01/18 15:34 [facility] [id number]) OT- Subjective Occupational Therapy Visit Type Type Initial Evaluation Visit Start Time 12:35 Visit Stop Time 13:25 Total Visit Minutes 50 Occupational Therapy Visit Comments Patient Comments Pt's anxious about pt going home and suggested for her to call daughter to come and help, as prior daughter offered to come and stay with them for a few days after surgery. Patient/Caregiver Goals To go home. OT Pain Assessment Pain When Pain Assessed At Rest Pain Present Pain Present Pain Reported Location Back Intensity 3 M4 OT- IP ADL's Start: 11/01/18 14:37 Freq: Status: Active Protocol: Document 11/01/18 14:45 [facility] (Rec: 11/01/18 15:34 [facility] [id number]) OT ADL-Grooming Comments OT Grooming Comments Pt able to do while sitting in recliner. Pt states usually sits on the counter to do all grooming needs at home and has to twist to get items. Therefore, recommend pt's may have to bring grooming items to him or have a high chair in front of the snk. OT ADL-Dressing General Eval Lower Body Dressing Ability Maximum Assistance Areas Needing Assistance Socks Shoes Orthosis/Prosthesis Comments OT Dressing Comments MAX A for all AFO, socks, and shoes. Able to educated pt's for good body mechanics to be able to assist pt to ayesha AFO's. Suggested instead of bending over to sit on a chair to assist her with socks, shoes, and AFO. OT ADL-Toileting Comments OT Toileting Comments Pt has RTS with handles. OT ADL-Bathing Comments OT Bathing Comments Pt states usually uses hlds to shower door frame to help step into the shower, however now may need to use FWW to help get into the shower in addition to assist. M6 OT- IP Functional Cognition Start: 11/01/18 14:37 Freq: Status: Active Protocol: Document 11/01/18 14:45 [facility] (Rec: 11/01/18 15:34 [facility] [id number]) Cognitive Factors Limiting Selfcare Function Cognitive Ability Level of Alertness Alert Patient Orientation Name Place Situation Attention Span Ability Capable of Focused Attention Capable of Sustained Attention Ability to Follow Commands Able to Follow One Step Commands Memory Description Short Term Impaired Safety Awareness Decreased Ability to Apply Precautions Underestimates Need for Assistance Problem Solving Ability Unable to Identify Errors Needs Assist to Identify Solutions Cognitive Comments Cognitive Assessment Comments Pt a little hard of hearing and needing concrete commands and step by step instructions. M7 OT- IP Mobility and Balance Start: 11/01/18 14:37 Freq: Status: Active Protocol: Document 11/01/18 14:45 [facility] (Rec: 11/01/18 15:34 [facility] [email or web address]) OT- Bed Mobility Assessment Sit to Supine Sit to Supine Assist Moderate Assistance 1 Person Assistance OT-Transfer Assessment Sit to and From Stand Sit to and from Stand Moderate Assistance 1 Person Assistance Transfers Transfer Ability Moderate Assistance 1 Person Assistance Technique Transfer Destination Bed Chair Transfer Technique Stand Step Pivot Devices Transfer Assistive Devices Gait Belt Front Wheeled Walker Orthotic/Prosthetic Devices or Brace: Yes Comments Mobility Comments PT needing MODA to stand to FWW and a bit shaky on his feet , MODA to help lower to recliner and bed. OT- Balance Assessment Sitting Balance and Reactions Static Sitting Balance Ability Normal Dynamic Sitting Balance Ability Good Standing Balance and Reactions Static Standing Balance Ability Fair M8 OT- IP Objective Assessments Start: 11/01/18 14:37 Freq: Status: Active Protocol: Document 11/01/18 14:45 [facility] (Rec: 11/01/18 15:34 [facility] [id number]) OT Gross Range of Motion Upper Extremity Range of Motion Assessment Right Impaired ROM Impairments Limited at end range. OT- Coordination Assessment Upper Extremity Finger to Nose Test Within Functional Limits OT-Muscle Tone Assessment Muscle Tone WNL Yes M9 OT- IP Assessment and Plan Start: 11/01/18 14:37 Freq: Status: Active Protocol: Document 11/01/18 14:45 [facility] (Rec: 11/01/18 15:34 [facility] [id number]) OT Summary Assessment and Plan Potential Rehabilitation Potential Fair Analytic Complexity at Evaluation Moderate Summary OT Impairments Pain Range of Motion Strength Balance Functional Cognition Functional Mobility Grooming Dressing Toileting Bathing Toilet Transfers Shower Transfers Progress Towards Goals Slow Progress due to Pain Slow Progress due to Activity Tolerance Assessment Summary Pt MOD complexity due to significant medical history, decreased strength, endurance, activity tolerance, balance, and has two step with no rails at home to get into the house . Pt would benefit from short skilled rehab prior to going home. Pt's at this time not able to provide enough assist to help pt . Goals Grooming Goal Standby Assistance Dressing Goal Moderate Assistance Toileting Goal Minimal Assistance Bathing Goal Moderate Assistance Toilet Transfer Goal Minimal Assistance Shower Transfer Goal Minimal Assistance Patient/Caregiver Education Goal Demonstrate Post-Op Precautions Caregiver Independent Assisting Patient Days to Meet Goals 5 Frequency of Treatment Frequency Of Treatment Twice a Day Treatment Plan OT Treatment Plan ADL Training Functional Cognition Training Functional Mobility Patient/Family Education Discharge Planning Other Treatment Recommendations and Next Family training. Treatment Focus Discharge Recommendations OT Discharge Recommendations SNF Rehab Home Equipment Needs BSC, horticultural agent, long handled sponge
[2018-11-01] MEDS: URSODIOL 500 MG 500 EACH PO (17:32)
[2018-11-01] MEDS: hydrOXYzine pamoate 25 MG CAPSULE PO (19:28)
[2018-11-01] MEDS: DOCUSATE 100 MG CAPSULE PO (21:16)
[2018-11-01] MEDS: SENNOSIDES 8.6 MG TABLET 17.2 MG PO (21:16)
[2018-11-02] MEDS: OXYCODONE IR 5 MG TABLET PO ×4 (00:41→15:52)
[2018-11-02 04:14] VITALS: BP 92/47; PULSE 79; RESP 18; TEMP 37.2; O2SAT 95
[2018-11-02 08:00] VITALS: BP 101/59; PULSE 83; RESP 16; TEMP 36.8; O2SAT 95
[2018-11-02] MEDS: DOCUSATE 100 MG CAPSULE PO ×2 (08:18→21:33)
[2018-11-02] MEDS: URSODIOL 500 MG 500 EACH PO ×2 (08:18→18:00)
[2018-11-02] MEDS: TAMSULOSIN 0.4 MG CAPSULE PO (08:19)
[2018-11-02] MEDS: PANTOPRAZOLE 20 MG TABLET PO (08:19)
[2018-11-02] MEDS: GLIMEPIRIDE 2 MG TABLET PO (08:19)
[2018-11-02] MEDS: ACETAMINOPHEN 325 MG TABLET 650 MG PO (08:20)
--- NOTE | 2018-11-02 08:42 | PM.PNPO.1 ---
Subjective Date Patient Seen: 11/02/18 Time Patient Seen: 08:42 Interval history: POD 2 s/p T11-L1 Laminectomies with Dr. Duque. His pain has been well controlled. He has been standing to urinate. He has been working with PT, and he has his leg braces. He has significant family support at home. He only has a few stairs to get into the home. He would like to discharge home. He has resumed his aspirin for VTE prophylaxis. Exam Vital Signs (past 8 hours): - 11/02/18 04:14 11/02/18 08:00 Temperature 98.9 F 98.3 F Pulse Rate 79 83 Respiratory Rate 18 16 Blood Pressure 92/47 L 101/59 L Pulse Oximetry 95 95 Oxygen Delivery Method Room Air Oxygen Flow Rate 0 Narrative Exam Narrative: Patient is sitting up in no acute distress. He is alert and oriented x3. Calves are soft, compressible, nontender bilaterally. Pulses are symmetrical. Sensation intact to light touch throughout bilateral extremities. He is able to actively dorsiflex plantar flex. Objective Labs Result Diagrams: 10/31/18 07:10 10/31/18 07:10 Assessment & Plan Post-op Postoperative Procedures Operation Date: 10/31/18 07:45 Actual Procedures Side Surgeon p T11-T12, T12-L1 laminectomy Beatris Duque MD Patient will continue working with physical therapy. Patient would very much like to go home. His pain is well controlled. He needs to work with physical therapy today to determine if he is safe for the home environment. If therapy goes well he will be able to discharge home today.
--- NOTE | 2018-11-02 10:53 | OT.IP.TRT ---
Current Diagnoses Unspecified cord compression (11/01/18) Spinal stenosis, thoracic region (11/01/18) Unspecified urinary incontinence (11/01/18) Surgery Performed Operation Date: 10/31/18 07:45 Actual Procedures p T11-T12, T12-L1 laminectomy - Beatris Duque MD Occupational Therapy Treatment Note M2 OT-IP Current Condition Start: 11/01/18 14:37 Freq: Status: Active Protocol: Document 11/01/18 14:45 [facility] [facility] (Rec: 11/01/18 15:34 [facility] [facility] [id number]) Occupational Therapy Current Condition Current Condition Evaluation Date 11/01/18 Treatment Diagnosis T11-T12 Laminectomy, weakness Diagnosis Onset Date 11/01/18 Post Operative Precautions Lumbar Precautions Log Roll No Twisting Limit Bending Lifting Restriction of 10 lbs Weight Bearing Status Weight Bearing Status Weight Bear as Tolerated M3 OT- IP Subjective and Pain Start: 11/01/18 14:37 Freq: Status: Active Protocol: Document 11/02/18 10:53 [facility] (Rec: 11/02/18 15:56 [facility] [id number]) OT- Subjective Occupational Therapy Visit Type Type Treatment Note Visit Start Time 10:13 Visit Stop Time 10:53 Total Visit Minutes 40 Notes Pt's here for education this session. Occupational Therapy Visit Comments Patient Comments I don't have any pain if my back is supported on the chair . Patient/Caregiver Goals to go home OT Pain Assessment Pain When Pain Assessed After Treatment Pain Present Pain Present Denied Pain M4 OT- IP ADL's Start: 11/01/18 14:37 Freq: Status: Active Protocol: Document 11/02/18 10:53 [facility] (Rec: 11/02/18 15:56 [facility] [id number]) OT ADL-Dressing General Eval Upper Body Dressing Ability Standby Assistance Lower Body Dressing Ability Moderate Assistance Maximum Assistance Areas Needing Assistance Socks Shoes Comments OT Dressing Comments Provided education to pt's re: her body mechanics when helping pt don long compression hose, and B shoes with AFO's. Pt able to assist with pulling up compression hose, once gets them up over ankles (mod assist overall). Pt able to cross foot over opposite knee with no c/o of increased LBP. Pt needs max assist with donning shoes with AFO's in place. Provided education re: use of advanced practice rn to get pants over feet. states she will order advanced practice rn for pt. OT ADL-Toileting Comments OT Toileting Comments Provided education re: possible use of urinal at night so pt does not have to walk to bathroom without AFO's . Pt states he normally gets up 3x/night to urinate. OT ADL-Bathing Devices Bathing Equipment Long Handled Sponge or [place] Comments OT Bathing Comments Provided education re: body mechanics during seated shower and use of long bath sponge. Pt declined to shower today. M6 OT- IP Functional Cognition Start: 11/01/18 14:37 Freq: Status: Active Protocol: Document 11/02/18 10:53 [facility] (Rec: 11/02/18 15:56 [facility] [id number]) Cognitive Factors Limiting Selfcare Function Cognitive Ability Level of Alertness Alert Attention Span Ability Capable of Focused Attention Capable of Sustained Attention Ability to Follow Commands Able to Follow One Step Commands Safety Awareness Underestimates Need for Assistance OT Summary Assessment and Plan Potential Rehabilitation Potential Good Summary OT Impairments Pain Strength Balance Grooming Dressing Toileting Bathing Toilet Transfers Shower Transfers Progress Towards Goals Progressing Toward Goals Assessment Summary Pt's capable and willing to assist pt but has had some recent back pain. Pt needs encouragement to increase independence in basic self care rather than having do entire task for him e.g donning long compression hose. Per discussion with case reviewer, pt is now in pt status. Pt still requiring significant assist with all functional mobility, transfers , dressing, bathing and toileting and has 2 stairs to enter home. Recommend SNF at d/c for further rehab to increase safety and independence prior to returning home. Goals Grooming Goal Standby Assistance Dressing Goal Moderate Assistance Toileting Goal Minimal Assistance Bathing Goal Moderate Assistance Toilet Transfer Goal Minimal Assistance Shower Transfer Goal Minimal Assistance Patient/Caregiver Education Goal Demonstrate Post-Op Precautions Caregiver Independent Assisting Patient Days to Meet Goals 5 Frequency of Treatment Frequency Of Treatment Once a Day Treatment Plan OT Treatment Plan ADL Training Functional Cognition Training Functional Mobility Patient/Family Education Discharge Planning Discharge Recommendations OT Discharge Recommendations SNF Rehab
--- NOTE | 2018-11-02 10:59 | PT.IPTN ---
Current Diagnoses Unspecified cord compression (11/01/18) Spinal stenosis, thoracic region (11/01/18) Unspecified urinary incontinence (11/01/18) Surgery Performed Operation Date: 10/31/18 07:45 Actual Procedures p T11-T12, T12-L1 laminectomy - Beatris Duque MD Physical Therapy Treatment Note M2 PT-IP Current Condition Start: 10/31/18 16:43 Freq: NEEDED Status: Active Protocol: Document 10/31/18 15:10 [facility] (Rec: 10/31/18 17:13 AB [id number]) Physical Therapy Current Condition Current Condition Evaluation Date 10/31/18 Treatment Diagnosis s/p T11-L1 lami/facetectomies; difficulty in walking Onset Date 10/31/18 Precautions Lumbar Precautions Log Roll No Twisting Limit Bending Lifting Restriction of 10 lbs Gait Belt above Incisional Area M3 PT-IP Subjective Start: 10/31/18 16:43 Freq: NEEDED Status: Active Protocol: Document 11/02/18 10:59 [facility] (Rec: 11/02/18 13:09 [facility] [id number]) Subjective Physical Therapy Visit Type Type Treatment Note Visit Start Time 10:59 Visit Stop Time 11:28 Total Visit Minutes 29 Number of SAMPLE CHECKER Visits 0 Physical Therapy Visit Comments Patient Comments pt agreeable to do PT; pt's spouse present during PT session for caregiver training Therapy Pain Assessment Pain When Pain Assessed At Rest Pain Present Pain Present Pain Reported Location Back Intensity 2 Pain Management Techniques Apply Cold Re-positioning Timing of Activity with Medications M4 PT-IP Mobility and Gait Start: 10/31/18 16:43 Freq: NEEDED Status: Active Protocol: Document 11/02/18 10:59 [facility] (Rec: 11/02/18 13:09 AB [id number]) PT-Bed Mobility Assessment Rolling Type of Rolling Log Rolling Level of Assist Maximal Assistance Supine to Sit Supine to Sit Minimal Assistance Sit to Supine Sit to Supine Maximum Assistance 1 Person Assistance PT-Transfer Assessment Sit to and From Stand Sit to and from Stand Moderate Assistance Maximum Assistance 1 Person Assistance Use of Upper Extremities Equipment Transfer Assistive Device Gait Belt Front Wheeled Walker Orthotic/Prosthetic Devices or Brace: Yes Transfers Transfer Destination Bed Transfer Technique pt ambulated using FWW Transfer Ability Level of Assist Moderate Assistance Maximum Assistance 1 Person Assistance Use of Upper Extremities Comments Mobility Comments pt sitting on chair. caregiver training conducted. pt's spouse was able to put safety belt on pt. pt completed sit to stand from chair with spouse assisting. pt pushing chair backwards with BLE during ascent and requires assist and cues to weight shift forward. pt required max A and cues. spouse has to be cued to instruct pt. PT educated pt on sit <>stand techniques again. pt completed sit <> stand x 5 reps requiring mod to max A and cues. pt ambulated towards the bed ~ 10 ft mod to max A and cues using FWW. pt usually has increase L knee flexion but currently also has increase R knee flexion during ambulation . pt stated that he is tired and has bilateral thigh cramps . Bed mobility trainig: supine<> sit log roll. pt completed and spouse assisted pt with elevated LE up onto the bed for sit to supine. pt required assist with rolling to his back max A to move LE together with his UE. instructed spouse on how to assist pt. pt repeated bed mobility x 3 sets. pt completed sit <>stand x 3 reps from EOB mod to max A and max cues. pt requested to stay in bed after tx session. pt completed sit to supine max A and cues. required assist with positioning in bed. call light and table placed within reach. ice pack provided. left pt with spouse in room. Gait Assessment Gait Gait Assistance Required: Moderate Assistance Maximum Assistance Distance (Feet) 10 Able to Maintain Weight Bearing Status Yes During Gait Assistive Devices Assistive Device Gait Belt Front Wheeled Walker Orthotic/Prosthetic Devices or Brace: Yes Gait Deviations General Gait Pattern Antalgic Decreased Stride Length Decreased Feet Clearance Wide Based Gait Factors Limiting Gait Function Factors Limiting Gait Function Decreased Activity Tolerance Decreased Sensation Decreased Strength Difficulty Following Directions Limited Range of Motion Pain Poor Balance Poor Safety Awareness Comments Gait Comments pt with increase bilateral knee flexion with increase trunk flexion during ambulation and requires cues for upright posture and quads activation. Stair Climbing Assessment Comments Stair Climbing Comments pt ins not appropriate to do stair training at this time due to BLE weakness M5 PT-IP Objective Assessments Start: 10/31/18 16:43 Freq: NEEDED Status: Active Protocol: Document 10/31/18 15:10 [facility] (Rec: 10/31/18 17:13 [facility] [id number]) Orientation Orientation/Cognition Level of Alertness Alert Orientation Name Place Situation Language Function Ability Hard of Hearing Safety Awareness Decreased Safety Awareness Gross Range of Motion Lower Extremity ROM Assessment Bilaterally Impaired Impairments bilateral tightness towards ankle DF Strength Lower Extremity Strength Assessment Bilaterally Impaired Comments Strength Comments RLE 3+/5 LLE 3+/5 except bilateral ankle DF: 0/5 bilateral ankle PF 1/5 Sensation Assessment Sensation Gross Sensation Right LE Impaired Left LE Impaired Light Touch Impaired Proprioception (Position) Impaired Sensation Description Numbness Comments Sensation Comments pt has more sensation on LLE compared to RLE Other Assessments Other Other Assessments BLE muscle atrophy with L>R especially with calf muscle M6 PT-IP Treatment Start: 10/31/18 16:43 Freq: NEEDED Status: Active Protocol: Document 11/02/18 10:59 [facility] (Rec: 11/02/18 13:09 AB [id number]) Physical Therapy Treatment Education Education Provided Precautions Weight Bearing Status Safety M7 PT-IP Assessment and Plan Start: 10/31/18 16:43 Freq: NEEDED Status: Active Protocol: Document 11/02/18 10:59 [facility] (Rec: 11/02/18 13:09 AB [id number]) PT Summary Assessment and Plan Potential Rehabilitation Potential Fair Summary Impairments Pain ROM Strength Balance Coordination Sensation Tone Cognition Bed Mobility Transfers Gait Activity Tolerance Progress Towards Goals Slow Progress due to Pain Slow Progress due to Medical Issues Slow Progress due to Activity Tolerance Assessment Summary caregiver training conducted but needs further training. pt requiring mod to max A and max cues and is not safe to go home at this time. pt continues to be unsteady and not consistent with level of mobility and has decrease activity tolerance affecting mobility and safety. pt will require SNF rehab to improve strength and functional mobility. Goals Bed Mobility Goal Standby Assistance Transfer Goal Standby Assistance Front Wheeled Walker Gait Goal Standby Assistance Front Wheel Walker Gait Distance 100 Other Goals up/down 1 step using FWW; up/ down 2 steps using FWW/SPC SBA Days to Meet Goals 5 Frequency of Treatment Frequency Of Treatment Twice a Day Treatment Plan Physical Therapy Treatment Plan Bed Mobility Training Transfer Training Gait Training Therapeutic Exercise Balance Retraining Post Op Education Discharge Planning Hot or Cold Pack Neuromuscular Re-ed Coordination Retraining Manual Therapy Recommendations To Nursing Amount of Assist Needed 1 Person Assist Discharge Recommendations PT Discharge Recommendations SNF Rehab
[2018-11-02 11:44] VITALS: BP 91/42; PULSE 73; RESP 16; TEMP 36.7; O2SAT 94
--- NOTE | 2018-11-02 15:13 | PT.IPTN ---
Current Diagnoses Unspecified cord compression (11/01/18) Spinal stenosis, thoracic region (11/01/18) Unspecified urinary incontinence (11/01/18) Surgery Performed Operation Date: 10/31/18 07:45 Actual Procedures p T11-T12, T12-L1 laminectomy - Beatris Duque MD Physical Therapy Treatment Note M2 PT-IP Current Condition Start: 10/31/18 16:43 Freq: NEEDED Status: Active Protocol: Document 10/31/18 15:10 AB (Rec: 10/31/18 17:13 AB [id number]) Physical Therapy Current Condition Current Condition Evaluation Date 10/31/18 Treatment Diagnosis s/p T11-L1 lami/facetectomies; difficulty in walking Onset Date 10/31/18 Precautions Lumbar Precautions Log Roll No Twisting Limit Bending Lifting Restriction of 10 lbs Gait Belt above Incisional Area M3 PT-IP Subjective Start: 10/31/18 16:43 Freq: NEEDED Status: Active Protocol: Document 11/02/18 15:13 AB (Rec: 11/02/18 17:48 AB [id number]) Subjective Physical Therapy Visit Type Type Treatment Note Visit Start Time 15:13 Visit Stop Time 15:41 Total Visit Minutes 28 Number of NEIGHBORHOOD AIDE Visits 0 Physical Therapy Visit Comments Patient Comments pt agreeable to do PT. Therapy Pain Assessment Pain When Pain Assessed At Rest Pain Present Pain Present Pain Reported Location Back Scale Used pain scale not stated; c/o cramping on B quads Pain Behaviors Facial Grimacing Guarding Pain Management Techniques Apply Cold Re-positioning Timing of Activity with Medications M4 PT-IP Mobility and Gait Start: 10/31/18 16:43 Freq: NEEDED Status: Active Protocol: Document 11/02/18 15:13 AB (Rec: 11/02/18 17:48 AB [id number]) PT-Bed Mobility Assessment Rolling Type of Rolling Log Rolling Level of Assist Maximal Assistance 1 Person Assistance Supine to Sit Supine to Sit Moderate Assistance Maximum Assistance 1 Person Assistance Sit to Supine Sit to Supine Maximum Assistance 1 Person Assistance PT-Transfer Assessment Sit to and From Stand Sit to and from Stand Maximum Assistance 1 Person Assistance Use of Upper Extremities Equipment Transfer Assistive Device Gait Belt Front Wheeled Walker Comments Mobility Comments pt compelted sit <>stand x 2 attempts before being able to stand requring max A and max cues. increase B knee flexion during standing. pt with c/o increase bilateral knee pain. pt requested to just go back to bed due to pain. pt instructed to sit back down and rested. attempted to stand again requiring max A and cues. pt was able to take side steps towards HOB for positioning and required max A and cues. pt assisted to lay supine max A and cues. positioned pt in bed. call and table placed within reach. left pt with spouse and daughter in room. M5 PT-IP Objective Assessments Start: 10/31/18 16:43 Freq: NEEDED Status: Active Protocol: Document 10/31/18 15:10 AB (Rec: 10/31/18 17:13 AB [id number]) Orientation Orientation/Cognition Level of Alertness Alert Orientation Name Place Situation Language Function Ability Hard of Hearing Safety Awareness Decreased Safety Awareness Gross Range of Motion Lower Extremity ROM Assessment Bilaterally Impaired Impairments bilateral tightness towards ankle DF Strength Lower Extremity Strength Assessment Bilaterally Impaired Comments Strength Comments RLE 3+/5 LLE 3+/5 except bilateral ankle DF: 0/5 bilateral ankle PF 1/5 Sensation Assessment Sensation Gross Sensation Right LE Impaired Left LE Impaired Light Touch Impaired Proprioception (Position) Impaired Sensation Description Numbness Comments Sensation Comments pt has more sensation on LLE compared to RLE Other Assessments Other Other Assessments BLE muscle atrophy with L>R especially with calf muscle M6 PT-IP Treatment Start: 10/31/18 16:43 Freq: NEEDED Status: Active Protocol: Document 11/02/18 15:13 AB (Rec: 11/02/18 17:48 AB [id number]) Physical Therapy Treatment Education Education Provided Precautions Safety M7 PT-IP Assessment and Plan Start: 10/31/18 16:43 Freq: NEEDED Status: Active Protocol: Document 11/02/18 15:13 AB (Rec: 11/02/18 17:48 AB [id number]) PT Summary Assessment and Plan Potential Rehabilitation Potential Good Summary Impairments Pain ROM Strength Balance Coordination Sensation Tone Cognition Bed Mobility Transfers Gait Activity Tolerance Progress Towards Goals Slow Progress due to Pain Slow Progress due to Activity Tolerance Assessment Summary pt continues to require max A and max cues with mobility and presents with decrease activity tolerance. pt will need SNF rehab to improve strength and mobility prior to d/c home. Goals Bed Mobility Goal Standby Assistance Transfer Goal Standby Assistance Front Wheeled Walker Gait Goal Standby Assistance Front Wheel Walker Gait Distance 100 Other Goals up/down 1 step using FWW; up/ down 2 steps using FWW/SPC SBA Days to Meet Goals 10 Frequency of Treatment Frequency Of Treatment Twice a Day Treatment Plan Physical Therapy Treatment Plan Bed Mobility Training Transfer Training Gait Training Therapeutic Exercise Balance Retraining Post Op Education Discharge Planning Hot or Cold Pack Neuromuscular Re-ed Coordination Retraining Manual Therapy Recommendations To Nursing Amount of Assist Needed 1 Person Assist Discharge Recommendations PT Discharge Recommendations SNF Rehab
[2018-11-02] MEDS: hydrOXYzine pamoate 25 MG CAPSULE PO (15:52)
[2018-11-02 16:20] VITALS: BP 105/71; PULSE 98; RESP 18; TEMP 36.3; O2SAT 100
[2018-11-02] MEDS: DEXAMETHASONE 10 MG/ML VIAL 8 MG IV (17:59)
[2018-11-02] MEDS: ASPIRIN EC 81 MG TABLET PO (18:00)
[2018-11-02] MEDS: OXYCODONE IR 10 MG TABLET PO ×2 (19:08→22:38)
[2018-11-02 20:34] VITALS: BP 121/69; PULSE 95; RESP 20; TEMP 36.3
[2018-11-02] MEDS: SERTRALINE 50 MG TABLET PO (21:34)
[2018-11-02] MEDS: ATORVASTATIN 20 MG TABLET 40 MG PO (21:34)
[2018-11-02] MEDS: SENNOSIDES 8.6 MG TABLET 17.2 MG PO (21:34)
[2018-11-02] MEDS: INSULIN ASPART 100 UNIT/ML INSULN PEN SUBCUT (21:34)
[2018-11-02 23:58] VITALS: BP 130/63; PULSE 92; RESP 18; TEMP 37.1; O2SAT 94
[2018-11-03 06:25] VITALS: BP 136/78; PULSE 77; RESP 16; TEMP 37; O2SAT 93
[2018-11-03] MEDS: hydrOXYzine pamoate 25 MG CAPSULE PO ×2 (06:35→20:04)
[2018-11-03] MEDS: OXYCODONE IR 5 MG TABLET PO ×4 (06:35→20:03)
[2018-11-03 08:00] VITALS: BP 124/76; PULSE 69; RESP 16; TEMP 36.9; O2SAT 97
[2018-11-03] MEDS: INSULIN ASPART 100 UNIT/ML INSULN PEN SUBCUT ×4 (08:30→21:26)
[2018-11-03] MEDS: DOCUSATE 100 MG CAPSULE PO ×2 (08:31→20:04)
[2018-11-03] MEDS: TAMSULOSIN 0.4 MG CAPSULE PO (08:31)
[2018-11-03] MEDS: PANTOPRAZOLE 20 MG TABLET PO (08:31)
[2018-11-03] MEDS: URSODIOL 500 MG 500 EACH PO ×2 (08:32→16:44)
[2018-11-03] MEDS: MAGNESIUM HYDROXIDE 30 ML UDC PO (08:35)
[2018-11-03] MEDS: LISINOPRIL 5 MG TABLET 15 MG PO (08:39)
[2018-11-03] MEDS: GLIMEPIRIDE 2 MG TABLET PO (09:23)
--- NOTE | 2018-11-03 10:43 | PM.PNPO.1 ---
Subjective Date Patient Seen: 11/03/18 Time Patient Seen: 10:44 Interval history: Hospital day 4, postop day 3 following T11-12, T12-L1 laminectomy and bilateral partial facet ectomy knees by Dr. Duque. Patient states he is doing well at this time. Pain level is 1 to 2/10 at rest but increases with activity. Patient still needing assist for getting out of bed and with ambulation. PT and OT both have recommended SNF before going home. Patient does have bilateral foot drop and wears AFOs. Exam Vital Signs (past 8 hours): - 11/03/18 06:25 11/03/18 08:00 Temperature 98.6 F 98.4 F Pulse Rate 77 69 Respiratory Rate 16 16 Blood Pressure 136/78 124/76 Pulse Oximetry 93 97 Oxygen Delivery Method Room Air Oxygen Flow Rate 0 Narrative Exam Narrative: Alert, oriented no acute distress resting in bed. Back. Dressing is dry with slight shadowing. No signs of infection or inflammation. Legs. No calf pain or swelling. Pulses symmetrical. He has footdrop bilateral with weakness on dorsiflexion plantar flexion. Objective Labs Result Diagrams: 10/31/18 07:10 10/31/18 07:10 Assessment & Plan Post-op Postoperative Procedures Operation Date: 10/31/18 07:45 Actual Procedures Side Surgeon p T11-T12, T12-L1 laminectomy Beatris Duque MD Plan: Patient still needs further assist for transfers and ambulation. He states his is not able to help him at home. Patient will need SNF and is considering [facility]. Anticipate discharge tomorrow if stable.
--- NOTE | 2018-11-03 11:25 | PT.IPTN ---
Current Diagnoses Unspecified cord compression (11/01/18) Spinal stenosis, thoracic region (11/01/18) Unspecified urinary incontinence (11/01/18) Surgery Performed Operation Date: 10/31/18 07:45 Actual Procedures p T11-T12, T12-L1 laminectomy - Beatris Duque MD Physical Therapy Treatment Note M2 PT-IP Current Condition Start: 10/31/18 16:43 Freq: NEEDED Status: Active Protocol: Document 10/31/18 15:10 AB (Rec: 10/31/18 17:13 AB [id number]) Physical Therapy Current Condition Current Condition Evaluation Date 10/31/18 Treatment Diagnosis s/p T11-L1 lami/facetectomies; difficulty in walking Onset Date 10/31/18 Precautions Lumbar Precautions Log Roll No Twisting Limit Bending Lifting Restriction of 10 lbs Gait Belt above Incisional Area M3 PT-IP Subjective Start: 10/31/18 16:43 Freq: NEEDED Status: Active Protocol: Document 11/03/18 11:25 AB (Rec: 11/03/18 13:00 AB [id number]) Subjective Physical Therapy Visit Type Type Treatment Note Visit Start Time 11:25 Visit Stop Time 11:50 Total Visit Minutes 25 Number of MANAGER LEGAL Visits 0 Physical Therapy Visit Comments Patient Comments pt agreeble to do PT Therapy Pain Assessment Pain When Pain Assessed At Rest Pain Present Pain Present Pain Reported Location Back Intensity 4 Scale Used Numeric (1 - 10) Pain Management Techniques Re-positioning Timing of Activity with Medications M4 PT-IP Mobility and Gait Start: 10/31/18 16:43 Freq: NEEDED Status: Active Protocol: Document 11/03/18 11:25 AB (Rec: 11/03/18 13:00 AB [id number]) PT-Bed Mobility Assessment Rolling Type of Rolling Log Rolling Level of Assist Minimal Assistance Supine to Sit Supine to Sit Minimal Assistance PT-Transfer Assessment Sit to and From Stand Sit to and from Stand Moderate Assistance Maximum Assistance 1 Person Assistance Use of Upper Extremities Equipment Transfer Assistive Device Gait Belt Front Wheeled Walker Orthotic/Prosthetic Devices or Brace: Yes Transfers Transfer Destination Chair Transfer Technique pt ambulated using FWW Transfer Ability Level of Assist Moderate Assistance 1 Person Assistance Use of Upper Extremities Comments Mobility Comments pt required 2 attempts for sit to stand requiring mod to max A and max cues for techniques . required cues for upright posture and to straighten B knees. pt ambulated from EOB to the chair using FWW ~ 12 ft mod A and max cues. pt completed in room but requested to use the toilet and ambulated using FWW to the toilet mod A and cues. pt was able to maintain standing using FWW for support mod to max A and cues to activated quads. NAC assisted with toileting needs. Gait Assessment Gait Gait Assistance Required: Moderate Assistance 1 Person Assist Distance (Feet) 30 Able to Maintain Weight Bearing Status Yes During Gait Assistive Devices Assistive Device Gait Belt Front Wheeled Walker Orthotic/Prosthetic Devices or Brace: Yes Gait Deviations General Gait Pattern Antalgic Decreased Stride Length Decreased Feet Clearance Flexed Trunk Factors Limiting Gait Function Factors Limiting Gait Function Decreased Activity Tolerance Decreased Sensation Decreased Strength Difficulty Following Directions Limited Range of Motion Pain Poor Balance Poor Safety Awareness Comments Gait Comments pt can be impulsive M5 PT-IP Objective Assessments Start: 10/31/18 16:43 Freq: NEEDED Status: Active Protocol: Document 10/31/18 15:10 AB (Rec: 10/31/18 17:13 AB [id number]) Orientation Orientation/Cognition Level of Alertness Alert Orientation Name Place Situation Language Function Ability Hard of Hearing Safety Awareness Decreased Safety Awareness Gross Range of Motion Lower Extremity ROM Assessment Bilaterally Impaired Impairments bilateral tightness towards ankle DF Strength Lower Extremity Strength Assessment Bilaterally Impaired Comments Strength Comments RLE 3+/5 LLE 3+/5 except bilateral ankle DF: 0/5 bilateral ankle PF 1/5 Sensation Assessment Sensation Gross Sensation Right LE Impaired Left LE Impaired Light Touch Impaired Proprioception (Position) Impaired Sensation Description Numbness Comments Sensation Comments pt has more sensation on LLE compared to RLE Other Assessments Other Other Assessments BLE muscle atrophy with L>R especially with calf muscle M6 PT-IP Treatment Start: 10/31/18 16:43 Freq: NEEDED Status: Active Protocol: Document 11/03/18 11:25 AB (Rec: 11/03/18 13:00 AB [id number]) Physical Therapy Treatment Education Education Provided Precautions Safety M7 PT-IP Assessment and Plan Start: 10/31/18 16:43 Freq: NEEDED Status: Active Protocol: Document 11/03/18 11:25 AB (Rec: 11/03/18 13:00 AB [id number]) PT Summary Assessment and Plan Potential Rehabilitation Potential Good Summary Impairments Pain ROM Strength Balance Coordination Sensation Cognition Bed Mobility Transfers Gait Activity Tolerance Progress Towards Goals Slow Progress due to Pain Slow Progress due to Medical Issues Slow Progress due to Activity Tolerance Assessment Summary pt continues to require mod to max A and max cues. presents with unsteady gait and cues needed for techniques and safety. pt will need SNF rehab to improve strength and function. Goals Bed Mobility Goal Standby Assistance Transfer Goal Standby Assistance Front Wheeled Walker Gait Goal Standby Assistance Front Wheel Walker Gait Distance 100 Other Goals up/down 1 step using FWW; up/ down 2 steps using FWW/SPC SBA Days to Meet Goals 10 Frequency of Treatment Frequency Of Treatment Twice a Day Treatment Plan Physical Therapy Treatment Plan Bed Mobility Training Transfer Training Gait Training Therapeutic Exercise Balance Retraining Post Op Education Discharge Planning Hot or Cold Pack Neuromuscular Re-ed Coordination Retraining Manual Therapy Recommendations To Nursing Amount of Assist Needed 1 Person Assist Discharge Recommendations PT Discharge Recommendations SNF Rehab
[2018-11-03 12:00] VITALS: BP 137/67; PULSE 90; RESP 18; TEMP 36.7; O2SAT 97
--- NOTE | 2018-11-03 12:16 | PC.NURSE ---
Addendum entered by Linda Mullins R.N. 11/03/18 13:53: MS/PAIN - after lunch, assist x 2 person up from chair, few steps to bed, AFOs removed, given 5mg po oxycodone and positioned l side for comfort. Original Note: AM NOTE - alert, talkative, mildly forgetful, states pack discomfort 2 on scale 0/10, some occassional spasm, bp stable and no dizziness when up with PT this am, pt states takes lisinopril to keep bp low due heart valve, ra 94%, hr occass irreg 78, when up to dangle position, replaced barrier dsg with coversite, stapled incision with some pink at margins, no drainage noted, discussed constipation and narcotics and added MOM this am, to chair w/alarm set.
--- NOTE | 2018-11-03 15:33 | PT.IPTN ---
Current Diagnoses Unspecified cord compression (11/01/18) Spinal stenosis, thoracic region (11/01/18) Unspecified urinary incontinence (11/01/18) Surgery Performed Operation Date: 10/31/18 07:45 Actual Procedures p T11-T12, T12-L1 laminectomy - Beatris Duque MD Physical Therapy Treatment Note M2 PT-IP Current Condition Start: 10/31/18 16:43 Freq: NEEDED Status: Active Protocol: Document 10/31/18 15:10 AB (Rec: 10/31/18 17:13 AB [id number]) Physical Therapy Current Condition Current Condition Evaluation Date 10/31/18 Treatment Diagnosis s/p T11-L1 lami/facetectomies; difficulty in walking Onset Date 10/31/18 Precautions Lumbar Precautions Log Roll No Twisting Limit Bending Lifting Restriction of 10 lbs Gait Belt above Incisional Area M3 PT-IP Subjective Start: 10/31/18 16:43 Freq: NEEDED Status: Active Protocol: Document 11/03/18 15:33 AB (Rec: 11/03/18 17:28 AB [id number]) Subjective Physical Therapy Visit Type Type Treatment Note Visit Start Time 15:33 Visit Stop Time 16:02 Total Visit Minutes 29 Number of BUTCHER HELPER Visits 0 Physical Therapy Visit Comments Patient Comments pt agreeable to do PT Therapy Pain Assessment Pain When Pain Assessed At Rest Pain Present Pain Present Pain Reported Location Back Scale Used pain scale not stated Pain Management Techniques Re-positioning Timing of Activity with Medications M4 PT-IP Mobility and Gait Start: 10/31/18 16:43 Freq: NEEDED Status: Active Protocol: Document 11/03/18 15:33 AB (Rec: 11/03/18 17:28 AB [id number]) PT-Bed Mobility Assessment Supine to Sit Supine to Sit Minimal Assistance 1 Person Assistance Sit to Supine Sit to Supine Maximum Assistance 1 Person Assistance PT-Transfer Assessment Sit to and From Stand Sit to and from Stand Moderate Assistance Maximum Assistance 1 Person Assistance Use of Upper Extremities Equipment Transfer Assistive Device Gait Belt Front Wheeled Walker Orthotic/Prosthetic Devices or Brace: Yes Transfers Transfer Destination Bed Chair Toilet Transfer Technique pt ambulated using FWW Transfer Ability Level of Assist Moderate Assistance Maximum Assistance 1 Person Assistance Use of Upper Extremities Comments Mobility Comments pt requested to use the toilet . pt completed supine to sit min A and cues. completed sit to stand from EOB x 3 attempts requiring mod to max A and cues. pt ambulated from EOB to the toilet using FWW mod to max A and cues for posture and quad activation. pt was able to maintain standing using FWW for support mod A while OT assisted with toileting needs. pt ambulated out of the toilet using FWW mod to max A and instructed to sit on the chair. pt required mod to max A for controlled descent to the chair. pt completed sit to stand from chair mod A and cues and assisted with brief management. pt ambulated back towards the bed ~ 12 ft mod to max A and cues. pt continues to have increase forward trunk flexion and L knee flexion and requires cues to correct. completed sit <> stand from EOB x 3 reps requiring mod to max A and max cues. pt requested to stay in bed. assisted with sit to supine max A to elevated BLE up into the bed. positioned pt in bed . call light and table placed within reach. Gait Assessment Gait Gait Assistance Required: Moderate Assistance Maximum Assistance 1 Person Assist Distance (Feet) 12 Able to Maintain Weight Bearing Status No During Gait Assistive Devices Assistive Device Gait Belt Front Wheeled Walker Orthotic/Prosthetic Devices or Brace: No Gait Deviations General Gait Pattern Antalgic Ataxic Decreased Stride Length Decreased Feet Clearance Factors Limiting Gait Function Factors Limiting Gait Function Decreased Activity Tolerance Decreased Sensation Decreased Strength Difficulty Following Directions Limited Range of Motion Pain Poor Balance Poor Safety Awareness M5 PT-IP Objective Assessments Start: 10/31/18 16:43 Freq: NEEDED Status: Active Protocol: Document 10/31/18 15:10 AB (Rec: 10/31/18 17:13 AB [id number]) Orientation Orientation/Cognition Level of Alertness Alert Orientation Name Place Situation Language Function Ability Hard of Hearing Safety Awareness Decreased Safety Awareness Gross Range of Motion Lower Extremity ROM Assessment Bilaterally Impaired Impairments bilateral tightness towards ankle DF Strength Lower Extremity Strength Assessment Bilaterally Impaired Comments Strength Comments RLE 3+/5 LLE 3+/5 except bilateral ankle DF: 0/5 bilateral ankle PF 1/5 Sensation Assessment Sensation Gross Sensation Right LE Impaired Left LE Impaired Light Touch Impaired Proprioception (Position) Impaired Sensation Description Numbness Comments Sensation Comments pt has more sensation on LLE compared to RLE Other Assessments Other Other Assessments BLE muscle atrophy with L>R especially with calf muscle M6 PT-IP Treatment Start: 10/31/18 16:43 Freq: NEEDED Status: Active Protocol: Document 11/03/18 15:33 AB (Rec: 11/03/18 17:28 AB [id number]) Physical Therapy Treatment Education Education Provided Precautions Safety M7 PT-IP Assessment and Plan Start: 10/31/18 16:43 Freq: NEEDED Status: Active Protocol: Document 11/03/18 15:33 AB (Rec: 11/03/18 17:28 AB [id number]) PT Summary Assessment and Plan Potential Rehabilitation Potential Fair Summary Impairments Pain ROM Strength Balance Coordination Sensation Tone Cognition Bed Mobility Transfers Gait Activity Tolerance Progress Towards Goals Slow Progress due to Medical Issues Slow Progress due to Activity Tolerance Assessment Summary Pt continues to require mod to max A with mobility and has decrease activity tolerance. presents with unsteady gait and use UE heavily on FWW for support. pt will need SNF rehab to improve strength and function. Goals Bed Mobility Goal Standby Assistance Transfer Goal Standby Assistance Front Wheeled Walker Gait Goal Standby Assistance Front Wheel Walker Gait Distance 100 Other Goals up/down 1 step using FWW; up/ down 2 steps using FWW/SPC SBA Days to Meet Goals 10 Frequency of Treatment Frequency Of Treatment Twice a Day Treatment Plan Physical Therapy Treatment Plan Bed Mobility Training Transfer Training Gait Training Therapeutic Exercise Balance Retraining Post Op Education Discharge Planning Hot or Cold Pack Neuromuscular Re-ed Coordination Retraining Manual Therapy Recommendations To Nursing Amount of Assist Needed 1 Person Assist Discharge Recommendations PT Discharge Recommendations SNF Rehab
--- NOTE | 2018-11-03 16:05 | CM.DPNOTE ---
Reviewed chart, pt discussed in multidisciplinary rounds. Pt will need SNF upon DC and he remains agreeable. Met w/pt and reviewed SNF options, he is hopeful to get a bed at [facility]. back up choice would be [facility]. TC to [facility] at [facility], P# [phone] also faxed referral. After review [facility] has accepted pt for admission Tuesday. Of note: pt's Medicare subscriber name is Gurpreet Mayen, Medicare coverage confirmed. Pt has been updated and remains agreeable. P: DC expected Tuesday to [facility] via their w/c van. This [employer]ET[employer] COACH will coordinate transportation time w/ Jeannine at [facility] [place]. DUSTIN Hodges
--- NOTE | 2018-11-03 16:27 | OT.IP.TRT ---
Current Diagnoses Unspecified cord compression (11/01/18) Spinal stenosis, thoracic region (11/01/18) Unspecified urinary incontinence (11/01/18) Surgery Performed Operation Date: 10/31/18 07:45 Actual Procedures p T11-T12, T12-L1 laminectomy - Beatris Duque MD Occupational Therapy Treatment Note M2 OT-IP Current Condition Start: 11/01/18 14:37 Freq: Status: Active Protocol: Document 11/01/18 14:45 [facility] (Rec: 11/01/18 15:34 [facility] [id number]) Occupational Therapy Current Condition Current Condition Evaluation Date 11/01/18 Treatment Diagnosis T11-T12 Laminectomy, weakness Diagnosis Onset Date 11/01/18 Post Operative Precautions Lumbar Precautions Log Roll No Twisting Limit Bending Lifting Restriction of 10 lbs Weight Bearing Status Weight Bearing Status Weight Bear as Tolerated M3 OT- IP Subjective and Pain Start: 11/01/18 14:37 Freq: Status: Active Protocol: Document 11/03/18 16:06 [facility] (Rec: 11/03/18 16:27 [facility] [id number]) OT- Subjective Occupational Therapy Visit Type Type Treatment Note Visit Start Time 15:15 Visit Stop Time 16:03 Total Visit Minutes 48 Occupational Therapy Visit Comments Patient Comments Pt initially not wanting to get up and wanting to wait for PT to come. After PT came, pt requesting to use the toilet. Patient/Caregiver Goals Pt reluctant but agreeable to go to skilled rehab. OT Pain Assessment Pain When Pain Assessed At Rest Pain Present Pain Present Denied Pain M4 OT- IP ADL's Start: 11/01/18 14:37 Freq: Status: Active Protocol: Document 11/03/18 16:06 [facility] (Rec: 11/03/18 16:27 [facility] [id number]) OT ADL-Dressing General Eval Lower Body Dressing Ability Maximum Assistance Areas Needing Assistance Socks Shoes Orthosis/Prosthesis Comments OT Dressing Comments Today as pt needing to use the toilet, therapists assisting to ayesha socks, shoes, and AFO' s. Pt states prior at home his foot nails would get pulled off from his socks. Pt states would wear footie socks first and then thicker socks. Asked pt about his foot care, and states looks at his feet but not with a foot mirror and does not trim nails as often as he should. OT ADL-Toileting General Evaluation Toileting Ability Maximum Assistance Areas Needing Assistance Manage Clothing Perform Perineal Hygiene Comments OT Toileting Comments Pt needing assist x 1 to stand with FWW while another person assist to hold urinal in place and to help with hygiene as pt not able to let go of FWW to be able to do own hygiene needs. M6 OT- IP Functional Cognition Start: 11/01/18 14:37 Freq: Status: Active Protocol: Document 11/03/18 16:06 [facility] (Rec: 11/03/18 16:27 [facility] [id number]) Cognitive Factors Limiting Selfcare Function Cognitive Ability Level of Alertness Alert Attention Span Ability Capable of Focused Attention Capable of Sustained Attention Ability to Follow Commands Able to Follow One Step Commands Memory Description Short Term Impaired Safety Awareness Underestimates Need for Assistance Problem Solving Ability Needs Assist to Identify Solutions Cognitive Comments Cognitive Assessment Comments Pt needing reminders for sequencing to stand and sit back down. Pt continues to need concrete commands and step by step instructions. M7 OT- IP Mobility and Balance Start: 11/01/18 14:37 Freq: Status: Active Protocol: Document 11/03/18 16:06 [facility] (Rec: 11/03/18 16:27 [facility] [id number]) OT-Transfer Assessment Sit to and From Stand Sit to and from Stand Moderate Assistance 2 Person Assistance Transfers Transfer Ability Moderate Assistance 2 Person Assistance Technique Transfer Destination Bed Chair Toilet Transfer Technique Stand Step Pivot Devices Transfer Assistive Devices Gait Belt Front Wheeled Walker Orthotic/Prosthetic Devices or Brace: Yes Comments Mobility Comments Pt needing two person assist as get more shakey legs tend to buckle. OT- Balance Assessment Sitting Balance and Reactions Static Sitting Balance Ability Normal Dynamic Sitting Balance Ability Good Standing Balance and Reactions Static Standing Balance Ability Poor M8 OT- IP Objective Assessments Start: 11/01/18 14:37 Freq: Status: Active Protocol: Document 11/01/18 14:45 [facility] (Rec: 11/01/18 15:34 [facility] [id number]) OT Gross Range of Motion Upper Extremity Range of Motion Assessment Right Impaired ROM Impairments Limited at end range. OT- Coordination Assessment Upper Extremity Finger to Nose Test Within Functional Limits OT-Muscle Tone Assessment Muscle Tone WNL Yes M9 OT- IP Assessment and Plan Start: 11/01/18 14:37 Freq: Status: Active Protocol: Document 11/03/18 16:06 [facility] (Rec: 11/03/18 16:27 [facility] [email or web address]) OT Summary Assessment and Plan Potential Rehabilitation Potential Good Summary OT Impairments Pain Strength Balance Grooming Dressing Toileting Bathing Toilet Transfers Shower Transfers Progress Towards Goals Progressing Toward Goals Assessment Summary Pt looking to go to skilled rehab tomorrow. Pt will benefit to continues to work towards independence with ADL' s and functional mobility. Pt 's daughter states prior pt at times having to hang onto his fir balance and hoping he will get stronger and safer . Goals Grooming Goal Standby Assistance Dressing Goal Moderate Assistance Toileting Goal Minimal Assistance Bathing Goal Moderate Assistance Toilet Transfer Goal Minimal Assistance Shower Transfer Goal Minimal Assistance Patient/Caregiver Education Goal Demonstrate Post-Op Precautions Caregiver Independent Assisting Patient Days to Meet Goals 5 Frequency of Treatment Frequency Of Treatment Once a Day Treatment Plan OT Treatment Plan ADL Training Functional Cognition Training Functional Mobility Patient/Family Education Discharge Planning Discharge Recommendations OT Discharge Recommendations SNF Rehab
[2018-11-03 16:38] VITALS: BP 118/55; PULSE 92; RESP 16; TEMP 37.1; O2SAT 94
[2018-11-03] MEDS: ASPIRIN EC 81 MG TABLET PO (16:44)
[2018-11-03] MEDS: METOPROLOL ER 50 MG TABLET PO (16:44)
[2018-11-03 19:24] VITALS: BP 122/74; PULSE 75; RESP 15; TEMP 36.9; O2SAT 96
[2018-11-03] MEDS: ATORVASTATIN 20 MG TABLET 40 MG PO (20:04)
[2018-11-03] MEDS: SENNOSIDES 8.6 MG TABLET 17.2 MG PO (20:05)
[2018-11-03] MEDS: MELATONIN 3 MG TABLET 6 MG PO (21:25)
[2018-11-03] MEDS: SERTRALINE 50 MG TABLET PO (21:26)
[2018-11-03 23:45] VITALS: BP 119/51; PULSE 82; RESP 18; TEMP 36.9; O2SAT 95
--- NOTE | 2018-11-04 00:20 | PC.NURSE ---
Addendum entered by Ness Moe R.N. 11/04/18 00:24: 0100- Pt awake, spoke to him about no BM. He is refusing enema & TX medication at this time. States he wants to try to go to the bathroom in the morning and try Original Note: 2300- Pt POD#3 [facility] martinez/ [place]; resting well; dressing CDI. Pt has hx of bilat foot drop, uses afo's, moving 1-2PA at this time in room. No problems voiding; tolerating regular diet. AC/HS BG checks taking place. 0020- Pt is refusing bilat SED's at this time, see worklist for charting. Pt denies any pain. VSS on RA.
[2018-11-04] MEDS: OXYCODONE IR 5 MG TABLET PO ×3 (02:27→12:10)
[2018-11-04 05:12] VITALS: BP 124/58; PULSE 81; RESP 16; TEMP 37.1; O2SAT 95
[2018-11-04 07:45] VITALS: BP 132/77; PULSE 67; RESP 16; TEMP 36.4; O2SAT 97
[2018-11-04] MEDS: INSULIN ASPART 100 UNIT/ML INSULN PEN SUBCUT ×2 (08:23→12:07)
[2018-11-04] MEDS: BISACODYL 10 MG SUPP PR (08:24)
[2018-11-04] MEDS: DOCUSATE 100 MG CAPSULE PO (08:26)
[2018-11-04] MEDS: LISINOPRIL 5 MG TABLET 15 MG PO (08:27)
[2018-11-04] MEDS: PANTOPRAZOLE 20 MG TABLET PO (08:27)
[2018-11-04] MEDS: GLIMEPIRIDE 2 MG TABLET PO (08:27)
[2018-11-04] MEDS: URSODIOL 500 MG 500 EACH PO (08:28)
[2018-11-04] MEDS: TAMSULOSIN 0.4 MG CAPSULE PO (08:28)
--- NOTE | 2018-11-04 09:55 | PC.NURSE ---
Addendum entered by Linda Mullins R.N. 11/04/18 14:48: TSF - when staff [facility] arrived, paperwork provided, pt assisted with his afo's and tsf to , has belongings, including cell phone, no principal planner, glasses, shoes and clothing, report called to Jaciel ALONSO at [facility]. Addendum entered by Linda Mullins R.N. 11/04/18 12:56: TSF - pt own medications returned from pharmacy and given to pt. Addendum entered by Linda Mullins R.N. 11/04/18 12:13: MS/PAIN/GI - up dangle position for lunch, some incr back discomfort after mobilizing up to bs w/large bm, given 5mg oxycodone. Original Note: AM NOTE - alert, sitting upright for breakfast, states pain has improved and slept better last night, discussed medications and given 5mg po oxycodone for mobilization later am, pt passing flatus, no bm and after meal, admin dulcolax suppos, coversite cdi, ra 95, hr occass irreg 76.
--- NOTE | 2018-11-04 09:57 | PM.DS.1 ---
History of Present Illness Date Patient Seen: 11/04/18 Time Patient Seen: 09:57 Chief complaint: [id number] Narrative: Patient has been having chronic back pain with history of multiple lumbar surgeries with neurologic deficit chronicially including bilateral drop foot that requires AFO. He has been having worsening and relatively new onset bladder and bowel incontinence over the last 4 weeks. Patient has been having difficulty getting to the bathroom due to both the worsening contents as well as difficulty walking using his legs due to weakness bilaterally. Patient has been having difficulty performing activity of daily living. After discussing risks benefits of treatment options, patient elected proceed with surgery urgently. Discharge Providers Date of admission: 11/01/18 12:24 Discharge Date: 11/04/18 Primary care physician: Zachary Whalen MD Consults: 10/31/18 11:37 Consult to Occupational Therapy Evaluate & Treat Comment: Physician Instructions: Evaluate and treat Consult to Physical Therapy Evaluate & Treat Comment: Physician Instructions: Evaluate and Treat Discharge provider: Gretta Miles PA-C Summary Discharge Diagnosis: s/p Laminectomy BPH Depression Hypertension GERD Hyperlipidemia Hospital Course: Nikolai was admitted for T11-L1 laminectomy with Dr. Duque. POD 4 patient ready to DC to SNF. Patient does have bilateral foot drop and wears AFOs. He required assistance throughout his stay with PT and OT. He is eating and voiding without difficulty or assistance. SCDs on, and ASA for DVT prophylaxis throughout his stay. Status at Discharge Functional status at discharge: uses cane/walker Exam Vital Signs (past 8 hours): - 11/04/18 05:12 11/04/18 07:45 Temperature 98.8 F 97.6 F Pulse Rate 81 67 Respiratory Rate 16 16 Blood Pressure 124/58 L 132/77 Pulse Oximetry 95 97 Oxygen Delivery Method Room Air Oxygen Flow Rate 0 Narrative Exam Narrative: Patient is sitting up in no acute distress. He is alert and oriented x3. Calves are soft, compressible, nontender bilaterally. SCDs on and functioning. Sensation intact to light touch throughout bilateral extremities. Pulses are symmetrical. Pain well controlled this morning. No complaints this morning. Objective Labs Result Diagrams: 10/31/18 07:10 10/31/18 07:10 Discharge Plan Discharge Plan Patient Disposition: SNF Transfer to: [facility] Transportation: Facility vehicle Consult as needed: Dental, Hearing, Mental health, Podiatry and Vision Discharge comment: DC to SNF today with coversite dressing on I certify the postop hospital custodial care is medically necessary on a continuing basis for any conditions for which he/ she received care during this hospitalization.: Yes The receiving facility has agreed to accept transfer and provide medical treatment.: Yes Discharge Med Rec/Prescriptions Prescriptions: New acetaminophen 325 mg Tablet 650 mg PO Q6HR PRN (Reason: Pain, Mild (1-3)) Qty: 60 RF: 0 docusate sodium [DOK] 100 mg Capsule 100 mg PO BID Qty: 60 RF: 0 oxycodone 5 mg Tablet 5 mg PO Q4HR Qty: 50 RF: 0 Continued atorvastatin 40 mg Tablet 40 mg PO DAILY RF: 0 tamsulosin [Flomax] 0.4 mg Capsule 0.4 mg PO DAILY RF: 0 Prilosec 20 mg PO DAILY RF: 0 Zoloft 50 mg PO DAILY RF: 0 aspirin 81 mg PO QPM RF: 0 lisinopril 15 mg PO DAILY RF: 0 metoprolol succinate 50 mg PO QPM RF: 0 ursodiol 500 mg PO DAILY RF: 0 colestipol [Colestid] 1 gram Tablet 2 g PO BID RF: 0 Discontinued hydrocodone-acetaminophen 5-325 mg Tablet 1 tab PO Q6H PRN (Reason: Pain) RF: 0 Follow up/Referrals: Beatris Duque MD [Physician] - Discharge Health Status Brief summary of current health status: Patient recovering from thoracic laminectomy. Multidrug resistant organism: No MDRO Provider Discharge Instructions Diet: Diet as Tolerated Liquid consistency: Normal/Thin Food texture: Regular Activity: No excessive bending, lifting, or twisting. Skin/Wound/Dressing Care Report to your healthcare provider any signs of infection, such as:: chills, fever and increased pain Dressing: Leave in place until appointment [facility] Reason for rehabilitation: Post-operative therapy Rehab type: Physical therapy and Occupational therapy Visit Report/Discharge Packet Instructions: DI for Laminectomy Discharge Data Primary Care Provider: Zachary Whalen Attending Provider: Beatris Duque Admit Date/Time: 11/01/18 12:24
[2018-11-04 12:00] VITALS: BP 118/74; PULSE 75; RESP 16; TEMP 37
--- NOTE | 2018-11-04 12:18 | PT.IPTN ---
Current Diagnoses Unspecified cord compression (11/01/18) Spinal stenosis, thoracic region (11/01/18) Unspecified urinary incontinence (11/01/18) Surgery Performed Operation Date: 10/31/18 07:45 Actual Procedures p T11-T12, T12-L1 laminectomy - Beatris Duque MD Physical Therapy Treatment Note M2 PT-IP Current Condition Start: 10/31/18 16:43 Freq: NEEDED Status: Discharge Protocol: Document 10/31/18 15:10 [facility] (Rec: 10/31/18 17:13 [facility] [id number]) Physical Therapy Current Condition Current Condition Evaluation Date 10/31/18 Treatment Diagnosis s/p T11-L1 lami/facetectomies; difficulty in walking Onset Date 10/31/18 Precautions Lumbar Precautions Log Roll No Twisting Limit Bending Lifting Restriction of 10 lbs Gait Belt above Incisional Area M3 PT-IP Subjective Start: 10/31/18 16:43 Freq: NEEDED Status: Discharge Protocol: Document 11/04/18 12:18 [facility] (Rec: 11/04/18 15:09 [facility] [id number]) Subjective Physical Therapy Visit Type Type Patient Refusal Notes checked on pt and pt sitting on EOB. stated that he is discharging to SNF and wants to save his energy for the long drive and refused PT. pt wants to lay back in bed and assisted pt. positioned pt in bed. call light and table placed within reach. No charges was put in as pt was seen for just ~ 5min.
--- NOTE | 2018-11-04 13:35 | CM.DPNOTE ---
Addendum entered by DUSTIN Hodges 11/04/18 13:41: IMM reviewed and signed by pt. JW Original Note: DC Note: DC scheduled to [facility] today as planned. Coordinated w/ Jeannine at [facility], faxed completed DC ppk to include signed med list, Rx, DC Summary and completed PASRR. Arranged [facility] w/c van to p/u at 1430, alerted pt and RN, all aware and agreeable to this plan. P: DC to [facility] via w/c van today. DUSTIN Hodges
== END 2018-11-04 14:57 | DRG 519 ==
LOC: OR 13:54 → AC 13:55
PROVIDERS: Admitting Provider Orthopaedic Surgery Orthopaedic Surgery of the Spine; PCP Family Medicine; Visit Provider Orthopaedic Surgery Orthopaedic Surgery of the Spine
DX: M48.04 Spinal stenosis, thoracic region (principal); G95.29 Other cord compression; M51.05 Intervertebral disc disorders with myelopathy, thoracolumbar region; R15.9 Full incontinence of feces; R32 Unspecified urinary incontinence; M21.379 Foot drop, unspecified foot; M24.28 Disorder of ligament, vertebrae; I10 Essential (primary) hypertension; N40.1 Benign prostatic hyperplasia with lower urinary tract symptoms; F32.9 Major depressive disorder, single episode, unspecified; K21.9 Gastro-esophageal reflux disease without esophagitis; E78.5 Hyperlipidemia, unspecified
CPT/HCPCS: 72020; 76000; 80048; 82962; 85025; 97162; 97166; 97530; 97535; J0690; J1100; J1170; J2405; J2704; J3010

== ENCOUNTER → 2022-10-11 10:34 | Outpatient (CLI) | payer MEDICARE, BC, SELFPAY ==
[2018-10-31 10:30] VITALS: BMI 28.5
--- NOTE | 2022-10-11 | DI.MRI.S_ITS ---
PROCEDURE: MR LUMBAR SPINE WO/W CON INDICATIONS: LUMBAR DISC DISEASE MYELOPATHY TECHNIQUE: Noncontrast sagittal T1 spin echo and T2 fast spin echo, sagittal STIR, axial T1 and T2 fast spin echo through the lumbar spine. In cases with scoliosis, additional coronal T2 fast spin echo may be performed. After the administration of contrast, sagittal and axial T1 spin echo with fat saturation through the lumbar spine. COMPARISON: [facility], MR, MR LUMBAR SPINE WO CON, 10/14/2018, 12:37. FINDINGS: Image quality: Excellent. Alignment and curvature: Levoscoliosis with a Whatley angle of 13?. Marrow: Marrow is of normal overall signal. No acute vertebral body compression fractures. No suspicious marrow enhancement. Spinal cord: Conus medullaris terminates at the L1 level. Visualized spinal cord demonstrates normal signal, without suspicious enhancement. Paraspinous soft tissues: The paraspinal muscles demonstrate fatty atrophy. No paravertebral masses or abnormal enhancement. T11-12: Disc space narrowing and diffuse disc bulge with facet hypertrophy bilaterally cause severe bilateral foraminal stenosis and moderate central canal stenosis. T12-L1: Disc space narrowing, anterior osteophytes, posterior disc osteophytes, and facet arthrosis. Both foramina have moderate stenosis. The central canal has severe stenosis. L1-L2: Mild disc bulge with desiccation. The foramina and central canal are patent. L2-L3: Disc bulge and disc osteophytes posteriorly with large fused anterior osteophytes anteriorly cause severe right and moderate left foraminal stenosis. Moderate central canal stenosis. The right lateral recess has severe stenosis with impingement of the exiting L3 nerve root. L3-L4: Disc space narrowing, anterior osteophytes, posterior disc osteophytes, and facet arthrosis. Both foramina have severe stenosis. Modic type 1 endplate degenerative changes. The central canal has mild stenosis. Postcontrast images demonstrate anterior epidural fibrosis. L4-L5: Disc space narrowing, anterior osteophytes, posterior disc osteophytes, and facet arthrosis. Both foramina have severe stenosis. The central canal has mild stenosis. L5-S1: Diffuse disc bulge and facet hypertrophy cause moderate to severe bilateral foraminal stenosis. The central canal has mild central canal stenosis. IMPRESSION: 1. Multilevel lumbar spondylosis causing foraminal stenosis as detailed above. 2. Severe central canal stenosis at T11-12 and T12-L1 as well as mild central canal stenosis at other levels, unchanged compared to 2019. 3. 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 4. No acute abnormality. Dictated by: Juan Payton M.D. on 10/11/2022 at 12:34 Approved by: Juan Payton M.D. on 10/11/2022 at 12:48
== END ==
PROVIDERS: PCP Internal Medicine; Referring Provider Internal Medicine; Visit Provider Internal Medicine
DX: M51.06 Intervertebral disc disorders with myelopathy, lumbar region (principal); M47.16 Other spondylosis with myelopathy, lumbar region; M47.817 Spondylosis without myelopathy or radiculopathy, lumbosacral region; M48.061 Spinal stenosis, lumbar region without neurogenic claudication; M48.04 Spinal stenosis, thoracic region; M48.05 Spinal stenosis, thoracolumbar region; M48.07 Spinal stenosis, lumbosacral region
CPT/HCPCS: 72158; A9579